=== PATIENT | male | born 1935 | race African-American/Black ===

== ENCOUNTER 2019-07-27 12:00 | Inpatient (IN) | payer MEDICARE, OTHER ==
[~2019-07-27] VITALS: Ht 172.7 cm; Wt 90.7 kg
[2019-07-27] VITALS (26 sets, daily range): BP systolic 51–169; BP diastolic 30–90
--- NOTE | 2019-07-27 12:08 | NUR ---
ED Nurse Note: Pt brought by ambulance to ED w/ hypotension. BP at SNF 70/40, ambulance BP 93/43. Current BP 169/82. Pt is nonverbal, eyes open, but non-tracing. Pt reactive to light pain. Pt has ventilator, came in with bagging. Pt now [facility], RT is present. MD at bedside. Pt has g tube, F/C. Pt is set up on monitor.
[2019-07-27] MEDS ORDERED: ASCORBIC ACID500 MG GT (12:20)
[2019-07-27] MEDS ORDERED: LACTULOSE20 GM/301 ORAL (12:20)
[2019-07-27] MEDS ORDERED: DUONEB 0.5-3(2.53 ML HHN (12:20)
[2019-07-27] MEDS ORDERED: ELIQUIS5 MG GT (12:20)
[2019-07-27] MEDS ORDERED: ACETAMINOP160 MG/5 M GT (12:20)
[2019-07-27] MEDS ORDERED: LATANOPROST 0.7.5 ML OP (12:20)
[2019-07-27] MEDS ORDERED: DORZOLAMIDE 2%10 ML OP (12:20)
[2019-07-27] MEDS ORDERED: FERROUS SULFAT325 MG GT (12:20)
[2019-07-27] MEDS ORDERED: HYDRALAZINE HCL10 MG ORAL (12:20)
[2019-07-27] MEDS ORDERED: CRANBERRY500 M4 PO (12:20)
[2019-07-27] MEDS ORDERED: PROSCAR5 MG GT (12:20)
[2019-07-27] MEDS ORDERED: POLYETHYLENE GL17 GM ORAL (12:20)
[2019-07-27] MEDS ORDERED: FLOMAX0.4 MG GT (12:22)
[2019-07-27] MEDS ORDERED: SENNA8.6 M2 GT (12:22)
[2019-07-27] MEDS ORDERED: THEOPHYLLI GT (12:24)
--- NOTE | 2019-07-27 12:30 | NUR ---
HAND-OFF: Report given to Fatou ROWAN.
[2019-07-27 12:59] LABS: HEMATOCRIT 24.7 % (42.0-52.0); HEMOGLOBIN 7.7 G/DL (14.2-18.0); MEAN CORPUSCULAR VOLUME 88 FL (80-99); PLATELET COUNT 161 K/UL (150-450); RED BLOOD COUNT 2.81 M/UL (4.70-6.10); RED CELL DISTRIBUTION WIDTH 21.4 % (11.6-14.8)
--- NOTE | 2019-07-27 13:04 | Diagnostic Imaging Report ---
Indication: Dyspnea Comparison: None A single view chest radiograph was obtained. Findings: Pulmonary edema demonstrated with evidence of a left pleural effusion. Heart may be mildly enlarged. Tracheostomy noted. Bones are unremarkable. IMPRESSION: Moderate pulmonary edema. Left pleural effusion
[2019-07-27] MEDS ORDERED: Piperacillin/Tazobactam 3.375 GM in NS 110 ML IVPB ONE (13:15)
[2019-07-27] MEDS ORDERED: Azithromycin 500 MG in NS 275 ML IV ONE (13:15)
[2019-07-27 13:20] LABS: ANION GAP 15 mmol/L (5-15); BLOOD UREA NITROGEN 36 mg/dL (7-18); CALCIUM 10.3 MG/DL (8.5-10.1); CARBON DIOXIDE 19 MMOL/L (21-32); CHLORIDE 110 MMOL/L (98-107); CREATININE 1.9 MG/DL (0.55-1.30); POTASSIUM 4.5 MMOL/L (3.5-5.1); SODIUM 143 MMOL/L (136-145)
[2019-07-27 13:28] LABS: INR 1.5 (0.9-1.1)
[2019-07-27 13:36] LABS: ALANINE AMINOTRANSFERASE 93 U/L (12-78); ALBUMIN 1.1 G/DL (3.4-5.0); ALBUMIN/GLOBULIN RATIO 0.3 (1.0-2.7); ALKALINE PHOSPHATASE 182 U/L (46-116); ASPARTATE AMINO TRANSFERASE 141 U/L (15-37); BILIRUBIN,TOTAL 0.2 MG/DL (0.2-1.0); CKMB 17.2 NG/ML (0.0-3.6); CREATINE KINASE 110 U/L (26-308)
--- NOTE | 2019-07-27 13:39 | NUR ---
ED Nurse Note:pt. has sacral and rectal skin errosion with wouns due to incontinence, picture was taken and downloaded
--- NOTE | 2019-07-27 13:40 | NUR ---
ED Nurse Note:urine swabs and sputum was sent to labs
[2019-07-27 13:45] LABS: APPEARANCE,URINE SLIGHTLY CLOUDY; BILIRUBIN, URINE NEGATIVE (NEGATIVE); COLOR,URINE PALE YELLOW; GLUCOSE, URINE (UA) NEGATIVE (NEGATIVE); KETONES,URINE NEGATIVE (NEGATIVE); LEUKOCYTE ESTERASE ,URINE 3+ (NEGATIVE); NITRITE,URINE NEGATIVE (NEGATIVE); PH,URINE 6.5 (4.5-8.0); PROTEIN,URINE 3+ (NEGATIVE); UROBILINOGEN,URINE NORMAL MG/DL (0.0-1.0)
[2019-07-27] MEDS ORDERED: LORazepam Inj 2mg/ml 1ml ONE (14:46)
--- NOTE | 2019-07-27 14:50 | NUR ---
ED Nurse Note:pt. had episode of seizures for 1 min, MD notified, placed on seizure precoution and given IV ativan, pt. became hypotensive
[2019-07-27] MEDS ORDERED: LORazepam Inj 2mg/ml 1ml IV ONE (15:00)
[2019-07-27] MEDS ORDERED: Levophed 4mg/4mL Inj IV ONE (15:45)
--- NOTE | 2019-07-27 15:50 | NUR ---
ED Nurse Note:started levophed infusion via central line
--- NOTE | 2019-07-27 16:07 | Emergency Room Report ---
History of Present Illness General Chief Complaint: Generalized Weakness Source: Medical Record Present Illness HPI 84-year-old male presents ED for evaluation. Brought in by EMS from [facility]. Reportedly more altered than usual today. Typically tracks but is nonresponsive. Trach/vent. No signs of distress on arrival. Unable to provide any additional history at this time. No reported fevers or chills. Was hypotensive. Initially responded to IV fluids. No other aggravating relieving factors. Denies any other associated symptoms Allergies: Coded Allergies: No Known Allergies (Unverified , 07/27/19) Patient History Past Medical History: HTN, dementia, other - brain mass Past Surgical History: other - trach/vent Social History: Denies: smoking, alcohol use, drug use Immunizations: UTD Reviewed Nursing Documentation: PMH: Agreed; PSxH: Agreed Nursing Documentation-PMH Past Medical History: No History, Except For Hx Hypertension: Yes - Pituitary gland disorder Hx Gastrointestinal Problems: Yes - dysphagia, G-tube Hx Neurological Problems: Yes - Dementia, encephalopathy Review of Systems All Other Systems: limited Physical Exam Vital Signs Date Time Temp Pulse Resp B/P (MAP) Pulse Ox O2 Delivery O2 Flow Rate FiO2 07/27/19 12:00 98.9 79 18 169/72 98 Mechanical Ventilator 07/27/19 12:00 98 Sp02 EP Interpretation: reviewed, normal General Appearance: alert, GCS 15, non-toxic, other - nonverbal Head: normocephalic Eyes: bilateral eye normal inspection, bilateral eye PERRL ENT: hearing grossly normal, normal pharynx, no angioedema, normal voice Neck: tracheotomy Respiratory: chest non-tender, crackles, speaking full sentences Cardiovascular #1: regular rate, rhythm, no edema Gastrointestinal: normal inspection Rectal: deferred Genitourinary: no CVA tenderness Musculoskeletal: other - contracted extremities Neurologic: other - nonverbal Psychiatric: other - nonverbal Skin: other - see nursing skin notes Lymphatic: normal inspection Procedures Critical Care Time Critical Care Time i. I feel this is a highly complex case requiring extensive working including EKG/Rhythm strip, Xray/CT/US, Blood/urine lab work, repeat exams while in ED, and administration of strong opiates/narcotics for pain control, admission to hospital or close patient follow up. Total time: 90 min bedside evaluation and treatment excludes procedures (EKG). Reason for critical care: hypotension, AMS, NSTEMI, pneumonia, severe sepsis, UTI Possible complications: hypotension, hypertension, FL, shock, arrhythmias, metabolic acidosis, end organ damage, respiratory failure. Interventions: labs, IVFS, EKG, CXR, 30cc/kg fluid bolus. broad spectrum abx. central line. ct pending Course: Brought in with increased altered mental status. Hypotensive. Trach/ vent. Lactic greater than 5. Troponin elevated. Has UTI. Chest x-ray shows pneumonia. Patient had seizure in ED. Given Ativan. Patient's chart shows history of brain mass. CT pending. Patient became hypotensive despite fluids. Given broad-spectrum antibiotics. Right IJ line placed. Pressors started. Consultations: nursing staff, EMS, family Performed by: Dr Vidal Tolerated well condition = critical j. because of unstable vital signs this patient had a condition that could potentially threaten life or limb. I feel this is a critical patient who required my full attention while patient was considered critical. Total Critical Care Time excluding procedures was greater than 90 minutes Central Line Central Line : Consent: Emergent Central Line Lumen: triple Maximal Sterile Barrier Tech: yes cap, yes mask, yes sterile gown, yes sterile gloves, yes large sterile sheet, yes hand hygiene, yes chlorhexidine prep Central Line Postion: internal jugular (R) Anesthesia: local Complications: none Central Line Post Position: sutured, good blood return, position confirmed w / CXR Attempts: One Patient Tolerated: Well Complications: None Medical Decision Making Diagnostic Impression: Primary Impression: Severe sepsis Additional Impressions: Septic shock Pneumonia Qualified Codes: J18.9 - Pneumonia, unspecified organism UTI (urinary tract infection) Qualified Codes: N39.0 - Urinary tract infection, site not specified Chronic respiratory failure Qualified Codes: J96.10 - Chronic respiratory failure, unspecified whether with hypoxia or hypercapnia Renal insufficiency Seizure ER Course Hospital Course 84-year-old male presents ED with altered mental status. Hypotension Differential diagnoses include: Pneumonia, UTI, sepsis, dehydration, FL/ unstable angina Clinical course Patient placed on stretcher. On radiation monitor with stable vitals ED course. After initial history and physical, I ordered labs, IV fluids, EKG, chest x- ray, blood cultures, UA. Labs - BUN/Cr elevated, no leukocytosis, Hb 7.7, troponins 0.9, lactic > 5, UA grossly positive for UTI EKG - NSR, no acute ischemic changes interpreted by me CXR - bilateral infiltrates Broad spectrum Abx given. Given 30 cc per KG fluid bolus. Patient remains hypotensive. Patient had seizure episode. Ativan given. Pending CT Right IJ central line placed. Confirmed on chest x-ray. Pressor started. Case discussed with Dr Witt and they agreed to admit patient to their service for further care and support I feel this is a highly complex case requiring extensive working including EKG/ Rhythm strip, Xray/CT/US, Blood/urine lab work, repeat exams while in ED, and administration of strong opiates/narcotics for pain control, admission to hospital or close patient follow up. Diagnosis -septic shock, pneumonia, UTI, chronic respiratory failure, renal insufficiency, seizure Patient admitted to ICU in critical condition Labs Test 07/27/19 12:30 07/27/19 12:35 Urine Color Pale yellow Urine Appearance Slightly cloudy Urine pH 6.5 (4.5-8.0) Urine Specific [place] 1.005 (1.005-1.035) Urine Protein 3+ (NEGATIVE) Urine Glucose (UA) Negative (NEGATIVE) Urine Ketones Negative (NEGATIVE) Urine Blood 5+ (NEGATIVE) Urine Nitrite Negative (NEGATIVE) Urine Bilirubin Negative (NEGATIVE) Urine Urobilinogen Normal MG/DL (0.0-1.0) Urine Leukocyte Esterase 3+ (NEGATIVE) Urine RBC 15-20 /HPF (0 - 0) Urine WBC 30-40 /HPF (0 - 0) Urine Squamous Epithelial Cells Few /LPF (NONE/OCC) Urine Bacteria Few /HPF (NONE) White Blood Count 10.0 K/UL (4.8-10.8) Red Blood Count 2.81 M/UL (4.70-6.10) Hemoglobin 7.7 G/DL (14.2-18.0) Hematocrit 24.7 % (42.0-52.0) Mean Corpuscular Volume 88 FL (80-99) Mean Corpuscular Hemoglobin 27.5 PG (27.0-31.0) Mean Corpuscular Hemoglobin Concent 31.3 G/DL (32.0-36.0) Red Cell Distribution Width 21.4 % (11.6-14.8) Platelet Count 161 K/UL (150-450) Mean Platelet Volume 7.9 FL (6.5-10.1) Neutrophils (%) (Auto) % (45.0-75.0) Lymphocytes (%) (Auto) % (20.0-45.0) Monocytes (%) (Auto) % (1.0-10.0) Eosinophils (%) (Auto) % (0.0-3.0) Basophils (%) (Auto) % (0.0-2.0) Differential Total Cells Counted 100 Neutrophils % (Manual) 58 % (45-75) Lymphocytes % (Manual) 18 % (20-45) Monocytes % (Manual) 7 % (1-10) Eosinophils % (Manual) 1 % (0-3) Basophils % (Manual) 0 % (0-2) Band Neutrophils 16 % (0-8) Nucleated Red Blood Cells 23 /100 WBC Platelet Estimate Adequate Platelet Morphology Normal Hypochromasia 1+ Anisocytosis 2+ Prothrombin Time 15.6 SEC (9.30-11.50) Prothromb Time International Ratio 1.5 (0.9-1.1) Activated Partial Thromboplast Time 59 SEC (23-33) Sodium Level 143 MMOL/L (136-145) Potassium Level 4.5 MMOL/L (3.5-5.1) Chloride Level 110 MMOL/L (98-107) Carbon Dioxide Level 19 MMOL/L (21-32) Anion Gap 15 mmol/L (5-15) Blood Urea Nitrogen 36 mg/dL (7-18) Creatinine 1.9 MG/DL (0.55-1.30) Estimat Glomerular Filtration Rate 41.0 mL/min (>60) Glucose Level 119 MG/DL (74-106) Lactic Acid Level 5.80 mmol/L (0.4-2.0) Calcium Level 10.3 MG/DL (8.5-10.1) Total Bilirubin 0.2 MG/DL (0.2-1.0) Aspartate Amino Transf (AST/SGOT) 141 U/L (15-37) Alanine Aminotransferase (ALT/SGPT) 93 U/L (12-78) Alkaline Phosphatase 182 U/L (46-116) Total Creatine Kinase 110 U/L (26-308) Creatine Kinase MB 17.2 NG/ML (0.0-3.6) Creatine Kinase MB Relative Index 15.6 Troponin I 0.963 ng/mL (0.000-0.056) Pro-B-Type Natriuretic Peptide 732 pg/mL (0-125) Total Protein 5.4 G/DL (6.4-8.2) Albumin 1.1 G/DL (3.4-5.0) Globulin 4.3 g/dL Albumin/Globulin Ratio 0.3 (1.0-2.7) EKG Diagnostic Results Rate: normal Rhythm: NSR ST Segments: no acute changes ASA given to the pt in ED: No Rhythm Strip Diag. Results EP Interpretation: yes Rhythm: NSR, no PVC's, no ectopy Chest X-Ray Diagnostic Results Chest X-Ray Diagnostic Results : Chest X-Ray Ordered: Yes # of Views/Limited/Complete: 1 View Indication: Shortness of Breath EP Interpretation: Yes Interpretation: no pneumothorax, other - bilateral infiltrates. R IJ line Impression: Other - bilateral pneumonia. s/p central line Electronically Signed by: Electronically signed by Bill Vidal MD CT/MRI/US Diagnostic Results CT/MRI/US Diagnostic Results : Imaging Test Ordered: CT Head Impression pending Last Vital Signs Date Time Temp Pulse Resp B/P (MAP) Pulse Ox O2 Delivery O2 Flow Rate FiO2 07/27/19 15:48 52 26 100 07/27/19 14:59 73/44 100 Mechanical Ventilator 07/27/19 13:55 98.9 Status: improved Disposition: ADMITTED INPATIENT Condition: Critical Referrals: NON PHYSICIAN (PCP) Bill Vidal MD Jul 27, 2019 16:07
--- NOTE | 2019-07-27 16:20 | Diagnostic Imaging Report ---
Indication: Dyspnea Comparison: 07/27/2019 A single view chest radiograph was obtained. Findings: Interstitial and airspace opacities again demonstrated laterally. There is a hazy opacity at the left lung base consistent with a pleural effusion. Right jugular line has been passed and the tip projects over the SVC. Tracheostomy noted. Heart size is stable. IMPRESSION: Right central line in good position. No pneumothorax Pulmonary edema. Left pleural effusion.
--- NOTE | 2019-07-27 16:53 | NUR ---
ED Nurse Note:continue to increase levophed drip to bring BP to theraputic level
--- NOTE | 2019-07-27 17:44 | NUR ---
ED Nurse Note:pt. had CT head done, levophed runs at 30mcg/min, continue monitor BP
--- NOTE | 2019-07-27 17:45 | Diagnostic Imaging Report ---
EXAM: CT Head Without Intravenous Contrast CLINICAL HISTORY: AMS TECHNIQUE: Axial computed tomography images of the head/brain without intravenous contrast. CTDI is 53 mGy and DLP is 1121 mGy-cm. One or more of the following dose reduction techniques were used: automated exposure control, adjustment of the mA and/or kV according to patient size, use of iterative reconstruction technique. COMPARISON: No relevant prior studies available. FINDINGS: Brain: No acute intracranial hemorrhage. Bifrontal and left parietal/occipital chronic encephalomalacia. Chronic small vessel ischemic changes. Cannot exclude [id number] ischemia on CT. Followup as clinically indicated. Ventricles: Unremarkable. Bones/joints: Left craniotomy. No acute fracture. Soft tissues: Unremarkable. Sinuses: Paranasal sinus mucosal thickening and opacities. Mastoid air cells: Opacities in bilateral mastoid air cells. Sella: Nonspecific sellar 2.5 x 1.5 cm prominence. Followup as clinically indicated. IMPRESSION: 1. No acute intracranial hemorrhage. Bifrontal and left parietal/occipital chronic encephalomalacia. Chronic small vessel ischemic changes. Cannot exclude [id number] ischemia on CT. Followup as clinically indicated. 2. Nonspecific sellar 2.5 x 1.5 cm prominence. Followup as clinically indicated. 3. Paranasal sinus mucosal thickening and opacities. 4. Opacities in bilateral mastoid air cells.
--- NOTE | 2019-07-27 18:10 | NUR ---
ED Nurse Note:called report to ICU, given to Mushtaq RN, pt. was taken to the unit
--- NOTE | 2019-07-27 18:20 | NUR ---
NURSE NOTES: Received patient from Fatou ROWAN. Patient is obtunded. Sinus Bradycardia on the Heart Monitor, HR 56. Currently on Levophed drip through Right IJ TLC at 30mcg/min. Receiving oxygen via trach to vent: Shiley 7.5 AC 14, TV 500, FiO2 100%, PEEP 5. Bed is locked, placed in lowest position, side rails up x3, bed alarm on, monitor placed, head of bed elevated.
--- NOTE | 2019-07-27 18:47 | History & Physical ---
History and Physical History & Physicial Rufus Witt MD Jul 27, 2019 18:47
[2019-07-27] MEDS ORDERED: DOPamine 400mg/250ml 250 ML IV SCH (18:48)
[2019-07-27] MEDS: Norepinephrine Bitartrate 16 MG in D5W 500ml 484 ML IV SCH (18:59)
[2019-07-27] MEDS ORDERED: Heparin 5000 units/ml inj IV ONE (19:00)
--- NOTE | 2019-07-27 19:03 | NUR ---
NURSE NOTES: Oral Temp 86.8 Degrees Fahrenheit. Bare hugger placed on patient. Will continue to monitor.
[2019-07-27] MEDS ORDERED: Albuterol/Ipratropium 3ml neb HHN PRN (19:15)
[2019-07-27] MEDS ORDERED: Heparin 25,000u/D5W 500ml 500 ML IV SCH (19:16)
[2019-07-27] MEDS: DOPamine 400mg/250ml 250 ML IV SCH ×2 (19:28→23:09)
--- NOTE | 2019-07-27 19:30 | NUR ---
NURSE NOTES: Patient's weight updated in the system. Heparin drip started at 18 units/kg/hr. Timed PTT draw ordered at 0130H. Dopamine started at 20mcg/kg/min
--- NOTE | 2019-07-27 19:33 | NUR ---
HAND-OFF: Report given to Grace ROWAN.
--- NOTE | 2019-07-27 19:34 | NUR ---
NURSE NOTES: Endorsement received from HARPAL Leone. Patient does not open eyes, no response to pain. Trache to vent, Shiley 7.5. AC 14, 500, PEEP 5, 100%. Right IJ TLC, receiving dopamine at 20mcg/kg/min. Right hand g18 heplock. GT patent and intact. Najera catheter F16 connected to urine bag. No urine output in the bag. Head of bed elevated. Bed locked and in low position. Bed alarm on. Call light within reach. Addendum: 07/27/19 at 2223 by GASPER WASBHURN RN NURSE NOTES: correction: received patient on Levophed double concentration at 16 mcg/min
--- NOTE | 2019-07-27 19:47 | Infectious Diseases Prog Note ---
Assessment/Plan Assessment/Plan Full consult dictated: A) 1) sepsis, shock, uti 2) pmh noted 3) allergies - nkda P) 1) zosyn, vancomycin, doxycycline 2) check cultures, labs and chest x-ray 3) thank you Subjective Allergies: Coded Allergies: No Known Allergies (Unverified , 07/27/19) Objective Vital Signs Last 24 Hour Vital Signs Date Time Temp Pulse Resp B/P (MAP) Pulse Ox O2 Delivery O2 Flow Rate FiO2 07/27/19 19:28 82/33 07/27/19 18:59 63/30 07/27/19 18:38 52 14 100 07/27/19 18:10 98.9 50 24 83/35 100 Mechanical Ventilator 100 07/27/19 17:43 50 24 83/35 100 Mechanical Ventilator 07/27/19 17:35 83/35 07/27/19 17:06 75/50 07/27/19 16:53 48 19 100 07/27/19 16:50 68/46 07/27/19 16:30 62/45 07/27/19 16:20 50 27 57/43 100 Mechanical Ventilator 07/27/19 16:18 57/43 07/27/19 16:07 61/42 07/27/19 16:00 49 25 51/42 100 Mechanical Ventilator 07/27/19 15:57 54/34 07/27/19 15:48 52 26 100 07/27/19 14:59 62 25 73/44 100 Mechanical Ventilator 07/27/19 13:55 98.9 54 25 120/90 100 Mechanical Ventilator 07/27/19 12:29 58 27 100 07/27/19 12:05 97.3 54 14 93/70 (78) 99 Room Air 07/27/19 12:00 87 23 Mechanical Ventilator 98 07/27/19 12:00 98.9 79 18 169/72 98 Mechanical Ventilator Height (Feet): 5 Height (Inches): 8.00 Weight (Pounds): 193 Microbiology Date/Time Source Procedure Growth Status 07/27/19 13:00 Rectum Received Laboratory Tests Test 07/27/19 12:30 07/27/19 12:35 07/27/19 15:55 Urine Color Pale yellow Urine Appearance Slightly cloudy Urine pH 6.5 (4.5-8.0) Urine Specific [place] 1.005 (1.005-1.035) Urine Protein 3+ (NEGATIVE) H Urine Glucose (UA) Negative (NEGATIVE) Urine Ketones Negative (NEGATIVE) Urine Blood 5+ (NEGATIVE) H Urine Nitrite Negative (NEGATIVE) Urine Bilirubin Negative (NEGATIVE) Urine Urobilinogen Normal MG/DL (0.0-1.0) Urine Leukocyte Esterase 3+ (NEGATIVE) H Urine RBC 15-20 /HPF (0 - 0) H Urine WBC 30-40 /HPF (0 - 0) H Urine Squamous Epithelial Cells Few /LPF (NONE/OCC) Urine Bacteria Few /HPF (NONE) White Blood Count 10.0 K/UL (4.8-10.8) Red Blood Count 2.81 M/UL (4.70-6.10) L Hemoglobin 7.7 G/DL (14.2-18.0) L Hematocrit 24.7 % (42.0-52.0) L Mean Corpuscular Volume 88 FL (80-99) Mean Corpuscular Hemoglobin 27.5 PG (27.0-31.0) Mean Corpuscular Hemoglobin Concent 31.3 G/DL (32.0-36.0) L Red Cell Distribution Width 21.4 % (11.6-14.8) H Platelet Count 161 K/UL (150-450) Mean Platelet Volume 7.9 FL (6.5-10.1) Neutrophils (%) (Auto) % (45.0-75.0) Lymphocytes (%) (Auto) % (20.0-45.0) Monocytes (%) (Auto) % (1.0-10.0) Eosinophils (%) (Auto) % (0.0-3.0) Basophils (%) (Auto) % (0.0-2.0) Differential Total Cells Counted 100 Neutrophils % (Manual) 58 % (45-75) Lymphocytes % (Manual) 18 % (20-45) L Monocytes % (Manual) 7 % (1-10) Eosinophils % (Manual) 1 % (0-3) Basophils % (Manual) 0 % (0-2) Band Neutrophils 16 % (0-8) H Nucleated Red Blood Cells 23 /100 WBC Platelet Estimate Adequate Platelet Morphology Normal Hypochromasia 1+ Anisocytosis 2+ Prothrombin Time 15.6 SEC (9.30-11.50) H Prothromb Time International Ratio 1.5 (0.9-1.1) H Activated Partial Thromboplast Time 59 SEC (23-33) H Sodium Level 143 MMOL/L (136-145) Potassium Level 4.5 MMOL/L (3.5-5.1) Chloride Level 110 MMOL/L (98-107) H Carbon Dioxide Level 19 MMOL/L (21-32) L Anion Gap 15 mmol/L (5-15) Blood Urea Nitrogen 36 mg/dL (7-18) H Creatinine 1.9 MG/DL (0.55-1.30) H Estimat Glomerular Filtration Rate 41.0 mL/min (>60) Glucose Level 119 MG/DL (74-106) H Lactic Acid Level 5.80 mmol/L (0.4-2.0) H 6.60 mmol/L (0.66-2.22) H Calcium Level 10.3 MG/DL (8.5-10.1) H Total Bilirubin 0.2 MG/DL (0.2-1.0) Aspartate Amino Transf (AST/SGOT) 141 U/L (15-37) H Alanine Aminotransferase (ALT/SGPT) 93 U/L (12-78) H Alkaline Phosphatase 182 U/L (46-116) H Total Creatine Kinase 110 U/L (26-308) Creatine Kinase MB 17.2 NG/ML (0.0-3.6) H Creatine Kinase MB Relative Index 15.6 Troponin I 0.963 ng/mL (0.000-0.056) Pro-B-Type Natriuretic Peptide 732 pg/mL (0-125) H Total Protein 5.4 G/DL (6.4-8.2) L Albumin 1.1 G/DL (3.4-5.0) L Globulin 4.3 g/dL Albumin/Globulin Ratio 0.3 (1.0-2.7) L Current Medications Medications (Trade) Dose Ordered Sig/Vicky Route PRN Reason Start Time Stop Time Status Last Admin Dose Admin Albuterol/ Ipratropium (Albuterol/ Ipratropium) 3 ml Q4H PRN HHN Shortness of Breath 07/27/19 19:15 08/01/19 19:14 Albuterol/ Ipratropium (Albuterol/ Ipratropium) 3 ml Q8HRT HHN 07/27/19 23:00 08/01/19 22:59 Dopamine HCl/ Dextrose 250 ml @ 0 mls/hr Q24H IV 07/27/19 19:17 08/26/19 19:16 07/27/19 19:28 Doxycycline Monohydrate (Doxycycline Monohydrate) 100 mg EVERY 12 HOURS GT 07/27/19 21:00 08/03/19 20:59 Heparin Sodium/ Dextrose 500 ml @ 31.5 mls/hr ADJUST PER PROTOCOL IV 07/27/19 19:16 08/26/19 19:15 07/27/19 19:24 Hydrocortisone (Solu-CORTEF) 100 mg EVERY 8 HOURS IV 07/27/19 22:00 08/26/19 21:59 Lansoprazole (Prevacid) 30 mg DAILY GT 07/27/19 09:00 08/26/19 08:59 Norepinephrine Bitartrate 16 mg/ Dextrose 500 ml @ 0 mls/hr Q24H IV 07/27/19 18:45 08/26/19 18:41 07/27/19 18:59 Piperacillin Sod/ Tazobactam Sod 3.375 gm/Sodium Chloride 110 ml @ 27.5 mls/hr EVERY 8 HOURS IVPB 07/27/19 22:00 08/01/19 21:59 Vancomycin HCl (Vanco rx to dose) 1 ea DAILY PRN MISC Per rx protocol 07/27/19 18:45 08/26/19 18:44 Vancomycin/Sodium Chloride 275 ml @ 137.5 mls/ hr ONCE IVPB 07/27/19 21:00 07/27/19 23:00 Nabila Rodriguez MD Jul 27, 2019 19:47
--- NOTE | 2019-07-27 20:00 | NUR ---
NURSE NOTES: Patient still hypothermic, kept on warming blanket.
[2019-07-27] MEDS ORDERED: LORazepam Inj 2mg/ml 1ml IV PRN (20:30)
[2019-07-27] MEDS: Dyna-Hex 2% Top Sol 2oz TOPIC SCH (20:33)
[2019-07-27] MEDS: Doxycycline Monohydrate 100mg GT SCH (20:34)
[2019-07-27] MEDS ORDERED: Vancomycin 1.5gm/NS Premix q24h IVPB SCH (21:00)
--- NOTE | 2019-07-27 22:30 | History and Physical Report ---
DATE OF ADMISSION: 07/27/2019 CHIEF COMPLAINT: Generalized weakness. HISTORY OF PRESENT ILLNESS: This is an 84 years old gentleman with past medical history significant for hypertension, dementia, brain mass, history of tracheostomy and PEG placement, DVT and PE, hypertension, BPH, chronic kidney disease, who presented to the hospital from nursing facility, [facility] after he was noted to have altered mental status and weakness. History is very limited secondary to the patient's status. History is mostly taken from the ER chart as well as senior care documentation. The patient shortly after initial evaluation in the emergency room was noted to be severely hypotensive. No fever or chills was reported at the senior care. The patient initially received IV fluid and was noted to be then started on Levophed pressor and subsequently the patient was admitted to ICU with septic shock as well as acute kidney injury and chronic renal insufficiency. PAST MEDICAL HISTORY AND PAST SURGICAL HISTORY: Significant for hypertension, dementia, brain mass, history of tracheostomy, vent dependent, status post PEG placement, DVT and PE, high hypertension, BPH, chronic kidney disease, dementia. MEDICATIONS: At the senior care, please refer to medication reconciliation. ALLERGIES: No known drug allergies. SOCIAL HISTORY: residential resident. No smoking, alcohol, or drugs. FAMILY HISTORY: Noncontributory. REVIEW OF SYSTEMS: Limited. No fever or chills was reported. PHYSICAL EXAMINATION: VITAL SIGNS: From emergency department, temperature 98.9, pulse of 79, respirations 18, and blood pressure initially was 169/72, then repeat one was noted to be 75/50 and 68/46. GENERAL: The patient is not responsive, cannot follow commands. Unable to open his eyes. HEENT: Head and neck examination, pupils equal and reactive to the light. Oral cavity has a full dentition with dry mouth and buccal cavity. NECK: Supple. Tracheostomy site is intact. No sign of drainage. HEART: S1, S2. Distant heart sounds. No murmur or gallop. LUNGS: Bilateral air entry and mechanical breath sounds. No wheeze. Occasional rhonchi. ABDOMEN: Soft, nondistended, nontender. PEG site is clean. PELVIC: Has a Najera catheter as well as a scar on the right hip area from previous surgery was noted, hip replacement. EXTREMITIES: +2 edema bilateral lower extremities. NEUROLOGIC: Neurologic examination is limited secondary to the patient's status. Presently, the patient is unresponsive, cannot follow commands. BACK: The patient has a stage DTI on the bilateral perianal area with mild bleeding, presented on admission. LABORATORY AND DIAGNOSTIC DATA: Laboratory on admission from the ER, WBC of 10, hemoglobin 7.7, hematocrit 24, platelet is 161. Sodium 143, potassium 4.5, chloride 101, bicarb 19, BUN 36, creatinine 1.9, GFR is 41, glucose is 119, and lactic acid is 5.8, repeat was 6.6, calcium is 10.3. Total bilirubin of 0.2, AST of 141, ALT of 93, alkaline phosphatase was 182. Troponin 0.963. ProBNP of 732. Total protein is 5.4, albumin is 1.1. PTT of 50, INR 1.5, and PTT of 59. Urine is +3 protein, +1 blood, +3 leukocytes, and 15 to 20 rbc's, 30 to 40 wbc. The patient had a chest x-ray, moderate pulmonary edema with left pleural effusion. CT of the head noted no acute intracranial hemorrhage, no skull fracture, chronic ischemic postoperative changes cannot exclude acute on chronic ischemic CT scan, paranasal sinus mucosal thickening and opacity. Repeat chest x-ray again, right central line in good position, no pneumothorax, pulmonary edema, left pleural effusion. EKG, sinus bradycardia with a ventricular rate of 59, no ST elevation, low-voltage EKG. ASSESSMENT: 1. Septic shock. 2. Acute kidney injury, chronic renal insufficiency. 3. History of DVT and PE. 4. Acute respiratory failure, on chronic vent dependent. 5. Status post PEG placement. 6. BPH. 7. History of hypertension, presently hypotensive. 8. Sacral decubitus ulcer, presented on admission. 9. Severe protein-calorie malnutrition. 10. Toxic metabolic encephalopathy. 11. Brain mass. PLAN: Admit the patient to ICU. Follow up with cultures. Broad-spectrum antibiotics with vancomycin and Zosyn and doxycycline. We will follow up with the laboratory in the morning. Code status at this time is Full Code. DVT prophylaxis, heparin drip. We will follow up with a duplex of lower extremity and follow up with Infectious Disease consultation, Dr. Nabila Rodriguez, Dr. Shantell Sosa, Pulmonary, Critical Care; Dr. Herrera from Wound management, Wound Care, and Dr. Jim Nance from Cardiology. Rufus Witt M.D. DR: DUANE JOB#: [id number] CC:
[2019-07-27] MEDS: Hydrocortisone 100mg Inj IV SCH (22:34)
[2019-07-27] MEDS: Zoysn 3.37gm in NS 100ML IVPB SCH (22:34)
--- NOTE | 2019-07-27 22:35 | Cardiology Progress Note ---
Assessment/Plan Assessment/Plan The patient is seen and examined, full consult note is dictated. Objective Last 24 Hour Vital Signs Date Time Temp Pulse Resp B/P (MAP) Pulse Ox O2 Delivery O2 Flow Rate FiO2 07/27/19 21:45 73 17 111/40 98 Mechanical Ventilator 07/27/19 21:30 73 15 108/36 97 Mechanical Ventilator 07/27/19 21:15 72 15 108/36 100 Mechanical Ventilator 07/27/19 21:00 72 14 105/36 100 Mechanical Ventilator 07/27/19 20:50 72 14 100 07/27/19 20:45 72 14 103/46 100 Mechanical Ventilator 07/27/19 20:30 73 14 88/45 100 Mechanical Ventilator 07/27/19 20:15 74 14 71/46 100 Mechanical Ventilator 07/27/19 20:00 75 07/27/19 20:00 74 14 79/32 100 Mechanical Ventilator 07/27/19 20:00 100 07/27/19 20:00 Mechanical Ventilator 07/27/19 19:45 77 14 75/32 100 Mechanical Ventilator 07/27/19 19:30 79 14 74/35 100 Mechanical Ventilator 07/27/19 19:28 82/33 07/27/19 19:15 66 16 82/33 100 Mechanical Ventilator 07/27/19 19:00 Mechanical Ventilator 07/27/19 19:00 86.8 48 15 74/35 100 Mechanical Ventilator 100 07/27/19 18:59 63/30 07/27/19 18:38 52 14 100 07/27/19 18:10 98.9 50 24 83/35 100 Mechanical Ventilator 100 07/27/19 17:43 50 24 83/35 100 Mechanical Ventilator 07/27/19 17:35 83/35 07/27/19 17:06 75/50 07/27/19 16:53 48 19 100 07/27/19 16:50 68/46 07/27/19 16:30 62/45 07/27/19 16:20 50 27 57/43 100 Mechanical Ventilator 07/27/19 16:18 57/43 07/27/19 16:07 61/42 07/27/19 16:00 49 25 51/42 100 Mechanical Ventilator 07/27/19 15:57 54/34 07/27/19 15:48 52 26 100 07/27/19 14:59 62 25 73/44 100 Mechanical Ventilator 07/27/19 13:55 98.9 54 25 120/90 100 Mechanical Ventilator 07/27/19 12:29 58 27 100 07/27/19 12:05 97.3 54 14 93/70 (78) 99 Room Air 07/27/19 12:00 87 23 Mechanical Ventilator 98 07/27/19 12:00 98.9 79 18 169/72 98 Mechanical Ventilator Laboratory Tests Test 07/27/19 12:30 07/27/19 12:35 07/27/19 15:55 Urine Color Pale yellow Urine Appearance Slightly cloudy Urine pH 6.5 (4.5-8.0) Urine Specific [place] 1.005 (1.005-1.035) Urine Protein 3+ (NEGATIVE) H Urine Glucose (UA) Negative (NEGATIVE) Urine Ketones Negative (NEGATIVE) Urine Blood 5+ (NEGATIVE) H Urine Nitrite Negative (NEGATIVE) Urine Bilirubin Negative (NEGATIVE) Urine Urobilinogen Normal MG/DL (0.0-1.0) Urine Leukocyte Esterase 3+ (NEGATIVE) H Urine RBC 15-20 /HPF (0 - 0) H Urine WBC 30-40 /HPF (0 - 0) H Urine Squamous Epithelial Cells Few /LPF (NONE/OCC) Urine Bacteria Few /HPF (NONE) White Blood Count 10.0 K/UL (4.8-10.8) Red Blood Count 2.81 M/UL (4.70-6.10) L Hemoglobin 7.7 G/DL (14.2-18.0) L Hematocrit 24.7 % (42.0-52.0) L Mean Corpuscular Volume 88 FL (80-99) Mean Corpuscular Hemoglobin 27.5 PG (27.0-31.0) Mean Corpuscular Hemoglobin Concent 31.3 G/DL (32.0-36.0) L Red Cell Distribution Width 21.4 % (11.6-14.8) H Platelet Count 161 K/UL (150-450) Mean Platelet Volume 7.9 FL (6.5-10.1) Neutrophils (%) (Auto) % (45.0-75.0) Lymphocytes (%) (Auto) % (20.0-45.0) Monocytes (%) (Auto) % (1.0-10.0) Eosinophils (%) (Auto) % (0.0-3.0) Basophils (%) (Auto) % (0.0-2.0) Differential Total Cells Counted 100 Neutrophils % (Manual) 58 % (45-75) Lymphocytes % (Manual) 18 % (20-45) L Monocytes % (Manual) 7 % (1-10) Eosinophils % (Manual) 1 % (0-3) Basophils % (Manual) 0 % (0-2) Band Neutrophils 16 % (0-8) H Nucleated Red Blood Cells 23 /100 WBC Platelet Estimate Adequate Platelet Morphology Normal Hypochromasia 1+ Anisocytosis 2+ Prothrombin Time 15.6 SEC (9.30-11.50) H Prothromb Time International Ratio 1.5 (0.9-1.1) H Activated Partial Thromboplast Time 59 SEC (23-33) H Sodium Level 143 MMOL/L (136-145) Potassium Level 4.5 MMOL/L (3.5-5.1) Chloride Level 110 MMOL/L (98-107) H Carbon Dioxide Level 19 MMOL/L (21-32) L Anion Gap 15 mmol/L (5-15) Blood Urea Nitrogen 36 mg/dL (7-18) H Creatinine 1.9 MG/DL (0.55-1.30) H Estimat Glomerular Filtration Rate 41.0 mL/min (>60) Glucose Level 119 MG/DL (74-106) H Lactic Acid Level 5.80 mmol/L (0.4-2.0) H 6.60 mmol/L (0.66-2.22) H Calcium Level 10.3 MG/DL (8.5-10.1) H Total Bilirubin 0.2 MG/DL (0.2-1.0) Aspartate Amino Transf (AST/SGOT) 141 U/L (15-37) H Alanine Aminotransferase (ALT/SGPT) 93 U/L (12-78) H Alkaline Phosphatase 182 U/L (46-116) H Total Creatine Kinase 110 U/L (26-308) Creatine Kinase MB 17.2 NG/ML (0.0-3.6) H Creatine Kinase MB Relative Index 15.6 Troponin I 0.963 ng/mL (0.000-0.056) Pro-B-Type Natriuretic Peptide 732 pg/mL (0-125) H Total Protein 5.4 G/DL (6.4-8.2) L Albumin 1.1 G/DL (3.4-5.0) L Globulin 4.3 g/dL Albumin/Globulin Ratio 0.3 (1.0-2.7) L Microbiology Date/Time Source Procedure Growth Status 07/27/19 13:00 Rectum Received Jim Nance MD Jul 27, 2019 22:35
--- NOTE | 2019-07-27 22:45 | NUR ---
NURSE NOTES: Called patient's son, telephone consent obtained as witnessed by another RN.
--- NOTE | 2019-07-27 23:21 | NUR ---
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 ID band checked. Patient still hypothermic at this time.
[2019-07-27] MEDS: Albuterol/Ipratropium 3ml neb HHN SCH (23:28)
[2019-07-28] VITALS (62 sets, daily range): BP systolic 75–128; BP diastolic 32–66
--- NOTE | 2019-07-28 00:30 | Consultation ---
DATE OF CONSULTATION: 07/27/2019 INFECTIOUS DISEASE CONSULTATION CONSULTING PHYSICIAN: Nabila Rodriguez M.D. ATTENDING PHYSICIAN: Rufus Witt M.D. REFERRING PHYSICIAN: Rufus Witt M.D REASON FOR CONSULTATION: Septic shock and UTI. CHIEF COMPLAINT: The patient's chief complaint coming in to the hospital is altered mental status and septic shock. HISTORY OF PRESENT ILLNESS: This is an 84-year-old male who currently is in the [facility] ICU with septic shock, on pressors. He is on heparin for DVT. Infectious disease consultation was requested. The patient has UTI. The patient is on Zosyn, vancomycin, and doxycycline. Cultures are pending. MAR was noted. Notes were reviewed. Case was discussed with RN. REVIEW OF SYSTEMS: CONSTITUTIONAL: The patient has trach, vent, respiratory failure, on pressors. No fevers. HEAD AND NECK: He has trach. CARDIAC: He is on pressors. GASTROINTESTINAL: No nausea or diarrhea. GENITOURINARY: He has a Najera. PULMONARY: On a vent. NEUROLOGIC: The patient is weak, not very responsive. No seizures. SKIN: Wounds were reviewed. No obvious rash. PAST MEDICAL HISTORY: The patient has a past medical history of the following. The patient has a past medical history of trach, vent, respiratory failure, dysphagia, G-tube, hypertension, dementia, brain mass, pituitary gland disorder, dysphagia, dementia, and encephalopathy. ALLERGIES: No known drug allergies. SOCIAL HISTORY: No mention of smoking, alcohol, or drug use. FAMILY HISTORY: Noncontributory. No mention of tuberculosis exposure or cancer. MEDICATIONS: Upon reviewing the MAR, he is on following medications, hydrocortisone, Solu-Cortef, doxycycline, Zosyn, vancomycin, albuterol, dopamine, heparin, norepinephrine. Vancomycin per pharmacy. Outside medications noted and reconciliated. PHYSICAL EXAMINATION: VITAL SIGNS: Temperature 98.9, pulse rate 52, respiratory rate 14, blood pressure 82/33, saturation 100%, and FiO2 100%. He is on pressors and heparin drip. HEAD AND NECK: He has trach. Normocephalic. No icterus. HEART: Regular, bradycardic. ABDOMEN: Soft. Positive bowel sounds. LUNGS: Bilateral rhonchi. Possible rales. He has crackles. SKIN: No rash. Wounds were noted. MUSCULOSKELETAL: No effusion. Legs are without cellulitis. PERIPHERAL VASCULAR: No cyanosis. GENITOURINARY: He has Najera. LINE SITES: Without phlebitis. NEUROLOGIC: Generalized weakness. Poorly responsive. LABORATORY DATA: UA had 3+ leukocyte esterase, 30 to 40 white blood cells. Cultures are pending. Creatinine 1.9. White count 10.0 and hemoglobin 7.7. LFTs noted. Imaging studies, chest x-ray with effusion and edema, right central line, left effusion, pulmonary edema. Cultures pending. ASSESSMENT AND PLAN: 1. The patient has septic shock, likely secondary to UTI, rule out cholecystitis, elevated liver enzymes, and alkaline phosphatase noted. Continue chest x-ray with pulmonary edema. Continue vancomycin, Zosyn, and doxycycline for MRSA gram-negative coverage. Again, vancomycin, Zosyn, and doxycycline for septic shock and UTI. Check followup labs, cultures, chest x-ray, and abdominal ultrasound. Monitor sepsis status. 2. Trach, vent, and respiratory failure. 3. Dysphagia, G-tube. 4. Skin care protocol. 5. Acute kidney, elevated creatinine. 6. Anemia. 7. Hypertension. 8. Dementia. 9. Blood pressure treatment per primary care team. 10. Brain mass. 11. Encephalopathy and dementia. 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 13. No known drug allergies. 14. Social history negative. 15. Family history negative. 16. MAR is noted. 17. Case was discussed with RN. 18. Orders were noted. Nabila Rodriguez M.D. DR: ELVIN JOB#: [id number] CC:
--- NOTE | 2019-07-28 01:30 | NUR ---
[facility] Downtime: On 07/28/2019 From 0130H to 0600H The following electronic documentation will be located in the patient handwritten chart: Nursing Documentation Medication Administration Records
[2019-07-28] MEDS ORDERED: Heparin 25,000u/D5W 500ml 500 ML IV SCH ×2 (06:00→14:45)
[2019-07-28] MEDS: Zoysn 3.37gm in NS 100ML IVPB SCH ×3 (06:10→21:23)
[2019-07-28] MEDS: Hydrocortisone 100mg Inj IV SCH ×3 (06:10→21:22)
--- NOTE | 2019-07-28 06:11 | Consultation ---
DATE OF CONSULTATION: 07/27/2019 CARDIOLOGY CONSULTATION CONSULTING PHYSICIAN: Jim Nance M.D. REFERRING PHYSICIAN: Rufus Witt M.D. REASON FOR CONSULTATION: Management of septic shock. HISTORY OF PRESENT ILLNESS: The patient is a very unfortunate 84-year-old gentleman who is [facility] in [facility] by EMS for altered level of consciousness and hypotension. The patient was reported to be more altered in the nursing facility. His baseline is nonresponsive and he has a history of chronic respiratory failure, status post tracheostomy tube placement. Given the fact that the patient is not capable of providing any history, this report is prepared from the patient's medical record and the record obtained by the emergency department physician. Initially, the patient received IV fluid in the emergency department, which helped his hypotension. Review of the record shows hypertension as the only risk factor for coronary artery disease. Initial blood pressure in the emergency department was 169/72 mmHg and heart rate was 79. A 12-lead electrocardiogram shows sinus rhythm with no acute ischemic changes. Chest x-ray in the emergency department showed bilateral infiltration, presence of right . The patient was admitted to the intensive care unit for septic shock. Cardiology consultation was made, requested by Dr. Witt. The patient is seen in the emergency department of [facility]. PAST MEDICAL HISTORY: Hypertension, dementia, brain mass, chronic respiratory failure, status post tracheostomy tube placement, history of dysphagia, status post PEG placement, and history of encephalopathy. ALLERGIES: No known drug allergies. PAST SURGICAL HISTORY: 1. Status post tracheostomy tube placement. 2. Status post PEG placement. SOCIAL HISTORY: He is a resident of a jail facility. There is no history of tobacco, alcohol, or illicit drug use. REVIEW OF SYSTEMS: A 12-system review cannot be obtained in view of the patient's nonverbal status. MEDICATIONS: List of medications in the nursing facility includes acetaminophen 650 G-tube every four hours for fever, headache, and mild pain. 5 mg G-tube twice daily, ascorbic acid 5 mg G-tube daily, cranberry 5 mg G-tube daily, dorzolamide eyedrops, ferrous sulfate 325 G-tube daily, Proscar 5 mg G-tube daily, hydralazine 12.5 mg G-tube q.6 h. for hypertension, DuoNeb 3 mL HHN every six hours, lactulose 30 mL every six hours, MiraLAX 17 g G-tube nightly p.r.n. constipation, senna 17.2 mg G-tube nightly p.r.n. constipation, Flomax 0.4 mg G-tube daily, and theophylline 80 mg G-tube five times a day. PHYSICAL EXAMINATION: VITAL SIGNS: Blood pressure at the time of arrival to the hospital was 57/43, heart rate of 50, and respirations 27 with saturation of 100%. HEENT: Atraumatic and normocephalic. Anicteric. Pupils are equal, round, and reactive to light and accommodation. Extraocular muscles intact. NECK: JVP less than 5 cm. ET tube in the mouth. No carotid bruit. Carotid upstrokes 2+ bilaterally. CVS: Normal S1, S2. Regular rate and rhythm. No murmurs, gallops, or rubs. PMI is at fourth intercostal space in the left midclavicular line. LUNGS: Clear to auscultation bilaterally. ABDOMEN: Soft, nontender, and nondistended. Positive G-tube. EXTREMITIES: No evidence of edema, clubbing, or cyanosis. LABORATORY AND DIAGNOSTIC DATA: WBC 10, hemoglobin 7.7, hematocrit 24.7, and platelet count 161. Chemistry shows sodium 143, potassium is 5.4, chloride 110, bicarb 19, BUN 36, creatinine 1.9, and glucose 119. Lactic acid was 5.8 and 6.6. AST 141, ALT 93. Troponin I was 0.963. ProBNP was 732. Calcium is 10.3. Troponin I is 0.96. Chest x-ray shows moderate pulmonary edema with left pleural effusion, marked enlarging cardiac silhouette. ASSESSMENT AND PLAN: The patient is a very unfortunate 64-year-old gentleman, seen in Cardiology consultation. 1. Septic shock. Continue with IV fluid, 2 L. Systolic blood pressure remains a little bit low at 90 mmHg. We will consider Kadeem-Synephrine at 5 mcg/kg/minute. Continue the IV antibiotic therapy. 2. Slight elevation of troponin I level with the demand ischemia with non-ST elevation myocardial infarction type 2 in the presence of sepsis and renal failure. We will obtain 2D echocardiography for assessment of LV systolic and diastolic function. 3. Ventilatory derived respiratory failure, status post tracheostomy tube placement. 4. Dysphagia, status post PEG placement. 5. Pituitary gland disorder. 6. Hypertension. 7. Dementia. 8. History of encephalopathy. I would like to thank Dr. Witt for the courtesy of this consultation. Jim Nance M.D. DR: OLMAN JOB#: [id number] CC:
[2019-07-28 06:36] LABS: HEMATOCRIT 28.9 % (42.0-52.0); HEMOGLOBIN 9.4 G/DL (14.2-18.0); MEAN CORPUSCULAR VOLUME 87 FL (80-99); PLATELET COUNT 176 K/UL (150-450); RED CELL DISTRIBUTION WIDTH 20.1 % (11.6-14.8)
--- NOTE | 2019-07-28 07:05 | NUR ---
HAND-OFF: Report given to HARPAL Leone.
--- NOTE | 2019-07-28 07:06 | NUR ---
NURSE NOTES: Received patient from Grace ROWAN. Patient is obtunded. Receiving oxygen via trach to vent: Shiley 7.5, AC 14, TV 500, FiO2 100%, PEEP 5. Patient is sinus tachycardia on the heart monitor, HR 107. G-tube is intact and clamped, currently NPO. IV site is Right IJ TLC receiving Levophed drip at 30mcg/min, Dopamine drip at 16mcg/kg/min, Heparin drip at 14units/kg/hr. Right hand 18g is intact and asymptomatic. Bed is locked, placed in lowest position, side rails up x3, bed alarm on, head of bed elevated. Will continue to monitor.
[2019-07-28 07:14] LABS: ALANINE AMINOTRANSFERASE 108 U/L (12-78); ALBUMIN 1.2 G/DL (3.4-5.0); ALBUMIN/GLOBULIN RATIO 0.3 (1.0-2.7); ALKALINE PHOSPHATASE 173 U/L (46-116); ANION GAP 12 mmol/L (5-15); ASPARTATE AMINO TRANSFERASE 202 U/L (15-37); BILIRUBIN,TOTAL 0.3 MG/DL (0.2-1.0); BLOOD UREA NITROGEN 39 mg/dL (7-18); CALCIUM 9.7 MG/DL (8.5-10.1); CARBON DIOXIDE 21 MMOL/L (21-32); CHLORIDE 109 MMOL/L (98-107); CREATININE 2.1 MG/DL (0.55-1.30); PHOSPHORUS 2.6 MG/DL (2.5-4.9); POTASSIUM 5.4 MMOL/L (3.5-5.1); SODIUM 141 MMOL/L (136-145)
--- NOTE | 2019-07-28 07:18 | Pulmonolgy Critical Care Note ---
Critical Care - Asmt/Plan Assessment/Plan: ASSESSMENT Severe sepsis probably due to PNA Septic shock Pneumonia, possibly aspiration ( given seizure in ED) UTI Acute on chronic ventilator dependent respiratory failure with tracheostomy status Elevated troponin Anemia ASIA vs CRI abnormal LFT, likely shock liver PLAN OF CARE ICU pressors- titrated to keep mean arterial blood pressure above 65 vent support,, trach care pulmonary toilet fup CXR stat ABG and call results, will titrate settings as needed ABX per ID, fup with CX venous duplex BLE and SCD if negative Echo with pEF serial troponin heparin drip -> ? dc due to red secretions from trach/ per cardio stress dose steroid, would advise to stop monitor H&H with goal to keep hemoglobin above 7, GI prophylaxis renal US with mild davion hydro, monitor renal parameters, lites ,correct lites as needed ,avoid nephrotoxic abd US noted, trend LFT, likely shock liver case discussed and evaluated by supervising physician Critical Care - Objective Last 24 Hour Vital Signs Date Time Temp Pulse Resp B/P (MAP) Pulse Ox O2 Delivery O2 Flow Rate FiO2 07/28/19 07:00 102 26 90/35 100 Mechanical Ventilator 100 07/28/19 06:45 101 26 86/39 100 Mechanical Ventilator 100 07/28/19 06:30 101 20 07/28/19 06:30 101 26 95/39 100 Mechanical Ventilator 100 07/28/19 06:15 101 24 94/34 100 Mechanical Ventilator 100 07/28/19 06:00 101 25 94/34 100 Mechanical Ventilator 100 07/28/19 06:00 94/34 07/28/19 06:00 94/34 07/28/19 05:45 100 25 88/34 100 Mechanical Ventilator 100 07/28/19 05:30 98 25 81/35 100 Mechanical Ventilator 100 07/28/19 05:15 97 24 86/33 100 Mechanical Ventilator 100 07/28/19 05:00 86/33 07/28/19 05:00 86/33 07/28/19 05:00 98 24 88/32 100 Mechanical Ventilator 100 07/28/19 04:45 96 25 89/34 100 Mechanical Ventilator 100 07/28/19 04:40 96 25 100 07/28/19 04:30 95 25 94/34 100 Mechanical Ventilator 100 07/28/19 04:15 96 24 90/44 100 Mechanical Ventilator 100 07/28/19 04:00 98.7 93 24 94/36 100 Mechanical Ventilator 100 07/28/19 04:00 90/44 07/28/19 04:00 90/44 07/28/19 04:00 100 07/28/19 04:00 92 07/28/19 04:00 Mechanical Ventilator 07/28/19 03:45 93 25 99/36 100 Mechanical Ventilator 100 07/28/19 03:30 92 23 101/32 100 Mechanical Ventilator 100 07/28/19 03:15 92 24 106/39 Mechanical Ventilator 100 07/28/19 03:00 91 24 102/33 100 Mechanical Ventilator 100 07/28/19 03:00 106/39 07/28/19 03:00 106/36 07/28/19 02:45 92 25 104/37 100 Mechanical Ventilator 100 07/28/19 02:35 92 28 100 07/28/19 02:30 94 28 99/49 100 Mechanical Ventilator 100 07/28/19 02:15 96 25 117/36 99 Mechanical Ventilator 100 07/28/19 02:00 95 26 128/39 100 Mechanical Ventilator 100 07/28/19 02:00 117/36 07/28/19 02:00 117/36 07/28/19 01:45 94 23 127/40 100 Mechanical Ventilator 100 07/28/19 01:30 92 23 127/42 100 Mechanical Ventilator 100 07/28/19 01:28 94 22 100 07/28/19 01:15 91 22 127/42 100 Mechanical Ventilator 100 07/28/19 01:00 127/42 07/28/19 01:00 127/42 07/28/19 01:00 88 20 120/42 100 Mechanical Ventilator 100 07/28/19 00:45 87 19 126/38 100 Mechanical Ventilator 100 07/28/19 00:30 85 19 122/42 100 Mechanical Ventilator 100 07/28/19 00:15 84 23 112/46 100 Mechanical Ventilator 100 07/28/19 00:00 Mechanical Ventilator 07/28/19 00:00 83 25 124/35 100 Mechanical Ventilator 100 07/28/19 00:00 100 07/28/19 00:00 112/46 07/28/19 00:00 112/42 07/28/19 00:00 79 07/27/19 23:45 91.0 84 15 119/34 100 Mechanical Ventilator 100 07/27/19 23:30 81 19 124/38 100 Mechanical Ventilator 100 07/27/19 23:28 81 22 100 Mechanical Ventilator 100 82 15 100 07/27/19 23:15 80 22 121/36 100 Mechanical Ventilator 100 07/27/19 23:09 124/34 07/27/19 23:00 79 23 124/34 100 Mechanical Ventilator 100 07/27/19 22:45 77 19 123/30 100 Mechanical Ventilator 100 07/27/19 22:30 75 19 118/35 100 Mechanical Ventilator 100 07/27/19 22:15 75 19 118/35 100 Mechanical Ventilator 100 07/27/19 22:00 74 17 113/37 100 Mechanical Ventilator 100 07/27/19 21:45 73 17 111/40 98 Mechanical Ventilator 07/27/19 21:30 73 15 108/36 97 Mechanical Ventilator 07/27/19 21:15 72 15 108/36 100 Mechanical Ventilator 07/27/19 21:00 72 14 105/36 100 Mechanical Ventilator 07/27/19 20:50 72 14 100 07/27/19 20:45 72 14 103/46 100 Mechanical Ventilator 07/27/19 20:30 73 14 88/45 100 Mechanical Ventilator 07/27/19 20:15 74 14 71/46 100 Mechanical Ventilator 07/27/19 20:00 75 07/27/19 20:00 74 14 79/32 100 Mechanical Ventilator 07/27/19 20:00 100 07/27/19 20:00 Mechanical Ventilator 07/27/19 19:45 77 14 75/32 100 Mechanical Ventilator 07/27/19 19:30 79 14 74/35 100 Mechanical Ventilator 07/27/19 19:28 82/33 07/27/19 19:15 66 16 82/33 100 Mechanical Ventilator 07/27/19 19:00 Mechanical Ventilator 07/27/19 19:00 86.8 48 15 74/35 100 Mechanical Ventilator 100 07/27/19 18:59 63/30 07/27/19 18:38 52 14 100 07/27/19 18:10 98.9 50 24 83/35 100 Mechanical Ventilator 100 07/27/19 17:43 50 24 83/35 100 Mechanical Ventilator 07/27/19 17:35 83/35 07/27/19 17:06 75/50 07/27/19 16:53 48 19 100 07/27/19 16:50 68/46 07/27/19 16:30 62/45 07/27/19 16:20 50 27 57/43 100 Mechanical Ventilator 07/27/19 16:18 57/43 07/27/19 16:07 61/42 07/27/19 16:00 49 25 51/42 100 Mechanical Ventilator 07/27/19 15:57 54/34 07/27/19 15:48 52 26 100 07/27/19 14:59 62 25 73/44 100 Mechanical Ventilator 07/27/19 13:55 98.9 54 25 120/90 100 Mechanical Ventilator 07/27/19 12:29 58 27 100 07/27/19 12:05 97.3 54 14 93/70 (78) 99 Room Air 07/27/19 12:00 87 23 Mechanical Ventilator 98 07/27/19 12:00 98.9 79 18 169/72 98 Mechanical Ventilator Status: other - intuabted on Vnet AC 500-14-90% PEEP5 Condition: critical HEENT: atraumatic, other - on vent Neck: trach - Shiley #7.5, small amount of thick secretions Lungs: rhonchi Heart: HR/BP unstable Abdomen: soft, feeding tube - G tube Extremities: no C/C/E Micro: Microbiology Date/Time Source Procedure Growth Status 07/27/19 13:00 Rectum Received Critical Care - Subjective ROS Limited/Unobtainable: Yes Intubation Day: intubated Interval Events: on vent with leukocytosis on 100% FiO2 tachycardic tachypneic on 2 diff pressors Condition: critical EKG Rhythm: Sinus Tachycardia FI02: 100 Vent Support Breath Rate: 14 Vent Support Mode: AC Vent Tidal Volume: 500 Sputum Amount: Small PEEP: 5.0 PIP: 20 Fluids: D5/12 NS at 75 Drips: Dopamine gtt 16 mcg.kg/min;m levophed gtt 30 mcg/min; heparin gtt I&O: Intake and Output 07/27/19 07/28/19 19:00 07:00 Intake Total 708.464 ml Output Total 60 ml Balance 648.464 ml Intake IV Total 708.464 ml Output Urine Total 60 ml # Voids 1 CXR: 07/27 Moderate pulmonary edema. Left pleural effusion 07/28 1. Pulmonary edema with small left pleural effusion, not significantly changed from the prior day's chest x-ray. 2. Subsegmental atelectasis versus infiltrate in the left lung base. Lori Evans NP Jul 28, 2019 07:18
[2019-07-28 07:26] LABS: WHITE BLOOD COUNT 25.4 K/UL (4.8-10.8)
[2019-07-28] MEDS: Albuterol/Ipratropium 3ml neb HHN SCH ×3 (08:01→22:55)
--- NOTE | 2019-07-28 08:02 | NUR ---
NURSE NOTES: Left message to Dr. Campbell regarding WBC lab results.
--- NOTE | 2019-07-28 08:06 | NUR ---
NURSE NOTES: Left message to Dr. Nance regarding Troponin levels.
--- NOTE | 2019-07-28 08:18 | NUR ---
NURSE NOTES: Received call back from Dr. Campbell, no new orders.
[2019-07-28] MEDS: Doxycycline Monohydrate 100mg GT SCH ×2 (09:17→20:38)
--- NOTE | 2019-07-28 09:24 | NUR ---
NURSE NOTES: Received call back from Dr. Nance, no new orders.
--- NOTE | 2019-07-28 09:27 | NUR ---
NURSE NOTES: Spoke to Dr. Witt regarding low urine output and potassium level. Will consult with Dr. Cruz.
[2019-07-28] MEDS: Norepinephrine Bitartrate 16 MG in D5W 500ml 484 ML IV SCH ×3 (09:36→21:23)
[2019-07-28] MEDS: DOPamine 400mg/250ml 250 ML IV SCH ×5 (09:38→21:44)
--- NOTE | 2019-07-28 10:44 | Consultation ---
Consult Note Consult Note I was asked to eval at the request of Dr Witt- Patient seen in ICU discussed with RN "Vasu". patient on pressors and on ventilator chronic trach- PEG ER: 84-year-old male presents ED for evaluation. Br[facility]. Reportedly more altered than usual today. Typically tracks but is nonresponsive. Trach/vent. No signs of distress on arrival. Unable to provide any additional history at this time. No reported fevers or chills. Was hypotensive. Initially responded to IV fluids. No other aggravating relieving factors. Denies any other associated symptoms No Known Allergies (Unverified , 07/27/19) Past Medical History: HTN, dementia, other - brain mass Past Surgical History: other - trach/vent Past Medical History: No History, Except For Hx Hypertension: Yes - Pituitary gland disorder Hx Gastrointestinal Problems: Yes - dysphagia, G-tube Hx Neurological Problems: Yes - Dementia, encephalopathy Assessment/Plan Acute renal failure- ? Underlying CKD Septic shock / Pneumonia Severe anemia- transfused 2 units PRBCs already acute on chronic respiratory failure- on Vent Elevated Troponin I History of DVT and PE. BPH Sacral decubitus ulcer, presented on admission. Brain mass ( pituitary) 2D echo ISIDRO kidney monitor renal parameters TFT Anemia bernstein fluid challenge per orders Lucas Cruz MD Jul 28, 2019 10:44
[2019-07-28] MEDS: D5 1/2NS w/KCL 10meq 1,000 ML IV SCH ×2 (11:48→21:22)
--- NOTE | 2019-07-28 12:35 | Infectious Diseases Prog Note ---
Assessment/Plan Assessment/Plan Full consult dictated: A) 1) sepsis, shock, uti, ? gram neg pna vs pulmonary edema 2) pmh noted 3) allergies - nkda P) 1) zosyn, vancomycin, doxycycline 2) check cultures, labs and chest x-ray 3) critical condition 4) skin care per protocol 5) d/w RN 6) continue per primary and consultants Subjective Constitutional: Reports: fatigue; Denies: fever HEENT: Reports: congestion Respiratory: Reports: shortness of breath Gastrointestinal/Abdominal: Denies: nausea, vomiting, diarrhea Genitourinary: Reports: other - + otero Allergies: Coded Allergies: No Known Allergies (Unverified , 07/27/19) Objective Vital Signs Last 24 Hour Vital Signs Date Time Temp Pulse Resp B/P (MAP) Pulse Ox O2 Delivery O2 Flow Rate FiO2 07/28/19 12:00 Mechanical Ventilator 07/28/19 12:00 98.9 107 25 100/38 100 Mechanical Ventilator 100 07/28/19 12:00 100 07/28/19 11:30 109 25 107/36 100 Mechanical Ventilator 100 07/28/19 11:00 97/32 07/28/19 11:00 97/32 07/28/19 11:00 97 25 97/32 100 Mechanical Ventilator 100 07/28/19 10:30 102 25 97/39 100 Mechanical Ventilator 100 07/28/19 10:15 94/34 07/28/19 10:00 104 24 94/34 100 Mechanical Ventilator 100 07/28/19 10:00 96/32 07/28/19 10:00 96/32 07/28/19 09:45 93 23 94/36 100 Mechanical Ventilator 100 07/28/19 09:38 95/37 07/28/19 09:36 95/37 07/28/19 09:30 94 22 95/37 100 Mechanical Ventilator 100 07/28/19 09:15 93 24 95/34 100 Mechanical Ventilator 100 07/28/19 09:00 97 23 93/36 100 Mechanical Ventilator 100 07/28/19 08:45 96 24 94/34 100 Mechanical Ventilator 100 07/28/19 08:01 101 29 100 Mechanical Ventilator 90 100 24 90 07/28/19 08:00 99.4 101 29 91/37 100 Mechanical Ventilator 100 07/28/19 08:00 100 07/28/19 08:00 Mechanical Ventilator 07/28/19 07:44 92 07/28/19 07:30 101 25 94/37 100 Mechanical Ventilator 100 07/28/19 07:00 92/33 07/28/19 07:00 92/33 07/28/19 07:00 102 26 90/35 100 Mechanical Ventilator 100 07/28/19 06:45 101 26 86/39 100 Mechanical Ventilator 100 07/28/19 06:30 101 20 07/28/19 06:30 101 26 95/39 100 Mechanical Ventilator 100 07/28/19 06:15 101 24 94/34 100 Mechanical Ventilator 100 07/28/19 06:00 101 25 94/34 100 Mechanical Ventilator 100 07/28/19 06:00 94/34 07/28/19 06:00 94/34 07/28/19 05:45 100 25 88/34 100 Mechanical Ventilator 100 07/28/19 05:30 98 25 81/35 100 Mechanical Ventilator 100 07/28/19 05:15 97 24 86/33 100 Mechanical Ventilator 100 07/28/19 05:00 86/07/28/19 05:00 86/33 07/28/19 05:00 98 24 88/32 100 Mechanical Ventilator 100 07/28/19 04:45 96 25 89/34 100 Mechanical Ventilator 100 07/28/19 04:40 96 25 100 07/28/19 04:30 95 25 94/34 100 Mechanical Ventilator 100 07/28/19 04:15 96 24 90/44 100 Mechanical Ventilator 100 07/28/19 04:00 98.7 93 24 94/36 100 Mechanical Ventilator 100 07/28/19 04:00 90/44 07/28/19 04:00 90/44 07/28/19 04:00 100 07/28/19 04:00 92 07/28/19 04:00 Mechanical Ventilator 07/28/19 03:45 93 25 99/36 100 Mechanical Ventilator 100 07/28/19 03:30 92 23 101/32 100 Mechanical Ventilator 100 07/28/19 03:15 92 24 106/39 Mechanical Ventilator 100 07/28/19 03:00 91 24 102/33 100 Mechanical Ventilator 100 07/28/19 03:00 106/39 07/28/19 03:00 106/36 07/28/19 02:45 92 25 104/37 100 Mechanical Ventilator 100 07/28/19 02:35 92 28 100 07/28/19 02:30 94 28 99/49 100 Mechanical Ventilator 100 07/28/19 02:15 96 25 117/36 99 Mechanical Ventilator 100 07/28/19 02:00 95 26 128/39 100 Mechanical Ventilator 100 07/28/19 02:00 117/36 07/28/19 02:00 117/36 07/28/19 01:45 94 23 127/40 100 Mechanical Ventilator 100 07/28/19 01:30 92 23 127/42 100 Mechanical Ventilator 100 07/28/19 01:28 94 22 100 07/28/19 01:15 91 22 127/42 100 Mechanical Ventilator 100 07/28/19 01:00 127/42 07/28/19 01:00 127/42 07/28/19 01:00 88 20 120/42 100 Mechanical Ventilator 100 07/28/19 00:45 87 19 126/38 100 Mechanical Ventilator 100 07/28/19 00:30 85 19 122/42 100 Mechanical Ventilator 100 07/28/19 00:15 84 23 112/46 100 Mechanical Ventilator 100 07/28/19 00:00 Mechanical Ventilator 07/28/19 00:00 83 25 124/35 100 Mechanical Ventilator 100 07/28/19 00:00 100 07/28/19 00:00 112/46 07/28/19 00:00 112/42 07/28/19 00:00 79 07/27/19 23:45 91.0 84 15 119/34 100 Mechanical Ventilator 100 07/27/19 23:30 81 19 124/38 100 Mechanical Ventilator 100 07/27/19 23:28 81 22 100 Mechanical Ventilator 100 82 15 100 07/27/19 23:15 80 22 121/36 100 Mechanical Ventilator 100 07/27/19 23:09 124/34 07/27/19 23:00 121/36 07/27/19 23:00 121/36 07/27/19 23:00 79 23 124/34 100 Mechanical Ventilator 100 07/27/19 22:45 77 19 123/30 100 Mechanical Ventilator 100 07/27/19 22:30 75 19 118/35 100 Mechanical Ventilator 100 07/27/19 22:15 75 19 118/35 100 Mechanical Ventilator 100 07/27/19 22:00 74 17 113/37 100 Mechanical Ventilator 100 07/27/19 22:00 118/35 07/27/19 22:00 118/35 07/27/19 21:45 73 17 111/40 98 Mechanical Ventilator 07/27/19 21:30 73 15 108/36 97 Mechanical Ventilator 07/27/19 21:15 72 15 108/36 100 Mechanical Ventilator 07/27/19 21:00 72 14 105/36 100 Mechanical Ventilator 07/27/19 21:00 105/36 07/27/19 21:00 105/36 07/27/19 20:50 72 14 100 07/27/19 20:45 72 14 103/46 100 Mechanical Ventilator 07/27/19 20:30 73 14 88/45 100 Mechanical Ventilator 07/27/19 20:15 74 14 71/46 100 Mechanical Ventilator 07/27/19 20:00 75 07/27/19 20:00 74 14 79/32 100 Mechanical Ventilator 07/27/19 20:00 79/32 07/27/19 20:00 79/32 07/27/19 20:00 100 07/27/19 20:00 Mechanical Ventilator 07/27/19 19:45 77 14 75/32 100 Mechanical Ventilator 07/27/19 19:30 79 14 74/35 100 Mechanical Ventilator 07/27/19 19:28 82/33 07/27/19 19:15 66 16 82/33 100 Mechanical Ventilator 07/27/19 19:00 Mechanical Ventilator 07/27/19 19:00 74/35 07/27/19 19:00 86.8 48 15 74/35 100 Mechanical Ventilator 100 07/27/19 18:59 63/30 07/27/19 18:38 52 14 100 07/27/19 18:10 98.9 50 24 83/35 100 Mechanical Ventilator 100 07/27/19 17:43 50 24 83/35 100 Mechanical Ventilator 07/27/19 17:35 83/35 07/27/19 17:06 75/50 07/27/19 16:53 48 19 100 07/27/19 16:50 68/46 07/27/19 16:30 62/45 07/27/19 16:20 50 27 57/43 100 Mechanical Ventilator 07/27/19 16:18 57/43 07/27/19 16:07 61/42 07/27/19 16:00 49 25 51/42 100 Mechanical Ventilator 07/27/19 15:57 54/34 07/27/19 15:48 52 26 100 07/27/19 14:59 62 25 73/44 100 Mechanical Ventilator 07/27/19 13:55 98.9 54 25 120/90 100 Mechanical Ventilator Height (Feet): 5 Height (Inches): 8.00 Weight (Pounds): 193 General Appearance: other - + vent and pressors HEENT: normocephalic, atraumatic, anicteric Respiratory/Chest: crackles/rales, rhonchi - bilaterally Cardiovascular: normal rate, regular rhythm Abdomen: soft, non tender, no organomegaly Genitourinary: other - + otero Microbiology Date/Time Source Procedure Growth Status 07/27/19 12:30 Sputum Induced Gram Stain Pending Resulted 07/27/19 12:30 Sputum Culture - Preliminary Gram Negative Bacillus 1 Resulted 07/27/19 13:00 Rectum Received Laboratory Tests Test 07/27/19 12:35 07/27/19 15:55 07/28/19 03:10 07/28/19 05:00 White Blood Count 10.0 K/UL (4.8-10.8) 25.4 K/UL (4.8-10.8) #*H Red Blood Count 2.81 M/UL (4.70-6.10) L 3.30 M/UL (4.70-6.10) L Hemoglobin 7.7 G/DL (14.2-18.0) L 9.4 G/DL (14.2-18.0) L Hematocrit 24.7 % (42.0-52.0) L 28.9 % (42.0-52.0) L Mean Corpuscular Volume 88 FL (80-99) 87 FL (80-99) Mean Corpuscular Hemoglobin 27.5 PG (27.0-31.0) 28.5 PG (27.0-31.0) Mean Corpuscular Hemoglobin Concent 31.3 G/DL (32.0-36.0) L 32.6 G/DL (32.0-36.0) Red Cell Distribution Width 21.4 % (11.6-14.8) H 20.1 % (11.6-14.8) H Platelet Count 161 K/UL (150-450) 176 K/UL (150-450) Mean Platelet Volume 7.9 FL (6.5-10.1) 7.4 FL (6.5-10.1) Neutrophils (%) (Auto) % (45.0-75.0) % (45.0-75.0) Lymphocytes (%) (Auto) % (20.0-45.0) % (20.0-45.0) Monocytes (%) (Auto) % (1.0-10.0) % (1.0-10.0) Eosinophils (%) (Auto) % (0.0-3.0) % (0.0-3.0) Basophils (%) (Auto) % (0.0-2.0) % (0.0-2.0) Differential Total Cells Counted 100 100 Neutrophils % (Manual) 58 % (45-75) 79 % (45-75) H Lymphocytes % (Manual) 18 % (20-45) L 4 % (20-45) L Monocytes % (Manual) 7 % (1-10) 5 % (1-10) Eosinophils % (Manual) 1 % (0-3) 3 % (0-3) Basophils % (Manual) 0 % (0-2) 0 % (0-2) Band Neutrophils 16 % (0-8) H 9 % (0-8) H Nucleated Red Blood Cells 23 /100 WBC 69 /100 WBC Platelet Estimate Adequate Adequate Platelet Morphology Normal Normal Hypochromasia 1+ 2+ Anisocytosis 2+ 2+ Prothrombin Time 15.6 SEC (9.30-11.50) H Prothromb Time International Ratio 1.5 (0.9-1.1) H Activated Partial Thromboplast Time 59 SEC (23-33) H > 150 SEC (23-33) *H Sodium Level 143 MMOL/L (136-145) 141 MMOL/L (136-145) Potassium Level 4.5 MMOL/L (3.5-5.1) 5.4 MMOL/L (3.5-5.1) H Chloride Level 110 MMOL/L (98-107) H 109 MMOL/L (98-107) H Carbon Dioxide Level 19 MMOL/L (21-32) L 21 MMOL/L (21-32) Anion Gap 15 mmol/L (5-15) 12 mmol/L (5-15) Blood Urea Nitrogen 36 mg/dL (7-18) H 39 mg/dL (7-18) H Creatinine 1.9 MG/DL (0.55-1.30) H 2.1 MG/DL (0.55-1.30) H Estimat Glomerular Filtration Rate 41.0 mL/min (>60) 36.5 mL/min (>60) Glucose Level 119 MG/DL (74-106) H 59 MG/DL (74-106) L Lactic Acid Level 5.80 mmol/L (0.4-2.0) H 6.60 mmol/L (0.66-2.22) H 5.60 mmol/L (0.4-2.0) H Calcium Level 10.3 MG/DL (8.5-10.1) H 9.7 MG/DL (8.5-10.1) Total Bilirubin 0.2 MG/DL (0.2-1.0) 0.3 MG/DL (0.2-1.0) Aspartate Amino Transf (AST/SGOT) 141 U/L (15-37) H 202 U/L (15-37) H Alanine Aminotransferase (ALT/SGPT) 93 U/L (12-78) H 108 U/L (12-78) H Alkaline Phosphatase 182 U/L (46-116) H 173 U/L (46-116) H Total Creatine Kinase 110 U/L (26-308) Creatine Kinase MB 17.2 NG/ML (0.0-3.6) H Creatine Kinase MB Relative Index 15.6 Troponin I 0.963 ng/mL (0.000-0.056) 1.540 ng/mL (0.000-0.056) Pro-B-Type Natriuretic Peptide 732 pg/mL (0-125) H Total Protein 5.4 G/DL (6.4-8.2) L 5.4 G/DL (6.4-8.2) L Albumin 1.1 G/DL (3.4-5.0) L 1.2 G/DL (3.4-5.0) L Globulin 4.3 g/dL 4.2 g/dL Albumin/Globulin Ratio 0.3 (1.0-2.7) L 0.3 (1.0-2.7) L Spherocytes 1+ Phosphorus Level 2.6 MG/DL (2.5-4.9) Magnesium Level 1.8 MG/DL (1.8-2.4) Test 07/28/19 10:16 07/28/19 12:05 Arterial Blood pH 7.376 (7.350-7.450) Arterial Blood Partial Pressure CO2 33.9 mmHg (35.0-45.0) L Arterial Blood Partial Pressure O2 215.0 mmHg (75.0-100.0) H Arterial Blood HCO3 19.4 mmol/L (22.0-26.0) L Arterial Blood Oxygen Saturation 99.0 % (95-100) Arterial Blood Base Excess -5.2 (-2-2) L En Test Positive Activated Partial Thromboplast Time Pending Lactic Acid Level Pending Random Vancomycin Level Pending Current Medications Medications (Trade) Dose Ordered Sig/Vicky Route PRN Reason Start Time Stop Time Status Last Admin Dose Admin Albuterol/ Ipratropium (Albuterol/ Ipratropium) 3 ml Q4H PRN HHN Shortness of Breath 07/27/19 19:15 08/01/19 19:14 Albuterol/ Ipratropium (Albuterol/ Ipratropium) 3 ml Q8HRT HHN 07/27/19 23:00 08/01/19 22:59 07/28/19 08:01 Chlorhexidine Gluconate (Annie-Hex 2%) 1 applic DAILY@2000 TOPIC 07/27/19 20:00 08/26/19 19:59 07/27/19 20:33 Dextrose/ Electrolytes 1,000 ml @ 75 mls/hr [id number] IV 07/28/19 11:30 08/27/19 11:29 07/28/19 11:48 Dopamine HCl/ Dextrose 250 ml @ 0 mls/hr Q24H IV 07/27/19 19:17 08/26/19 19:16 07/28/19 10:15 Doxycycline Monohydrate (Doxycycline Monohydrate) 100 mg EVERY 12 HOURS GT 07/27/19 21:00 08/03/19 20:59 07/28/19 09:17 Heparin Sodium/ Dextrose 500 ml @ 24.5 mls/hr ADJUST PER PROTOCOL IV 07/28/19 06:00 08/27/19 05:59 07/28/19 06:25 Hydrocortisone (Solu-CORTEF) 100 mg EVERY 8 HOURS IV 07/27/19 22:00 08/26/19 21:59 07/28/19 06:10 Lorazepam (Ativan 2mg/ml 1ml) 1 mg Q1H PRN IV For Seizures 07/27/19 20:30 08/03/19 20:29 Norepinephrine Bitartrate 16 mg/ Dextrose 500 ml @ 0 mls/hr Q24H IV 07/27/19 18:45 08/26/19 18:41 07/28/19 09:36 Pantoprazole (Protonix) 40 mg EVERY 12 HOURS IVP 07/28/19 21:00 08/27/19 20:59 Piperacillin Sod/ Tazobactam Sod 3.375 gm/Sodium Chloride 110 ml @ 27.5 mls/hr EVERY 8 HOURS IVPB 07/27/19 22:00 08/01/19 21:59 07/28/19 06:10 Vancomycin HCl (Vanco rx to dose) 1 ea DAILY PRN MISC Per rx protocol 07/27/19 18:45 08/26/19 18:44 Nabila Rodriguez MD Jul 28, 2019 12:35
[2019-07-28] MEDS ORDERED: Amikacin Rx to dose MISC PRN (12:45)
--- NOTE | 2019-07-28 13:41 | NUR ---
NURSE NOTES: Called Dr Nance to advise that patient is hypotensive despite being max on both Levo and Dopamine at this time. Request for PRN 3rd presser if patient continues to become hypotensive. Also, to report that patient is with luis a red blood from ETT and mouth. PTT was drawn and resulted >150. Advised Pharmacy that Heparin will be HELD at this time until further instruction from MD. Will await return call from .
[2019-07-28] MEDS ORDERED: Vancomycin 1gm/D5W 275ml IVPB ONE ×2 (14:00)
[2019-07-28] MEDS ORDERED: Amikacin 750 MG in NS 110 ML IV ONE (14:30)
--- NOTE | 2019-07-28 15:05 | Diagnostic Imaging Report ---
EXAM: US Duplex Bilateral Lower Extremity Veins CLINICAL HISTORY: DVT TECHNIQUE: Real-time duplex ultrasound scan of the bilateral lower extremity veins integrating B-mode two-dimensional vascular structure, Doppler spectral analysis, color flow Doppler imaging and compression. COMPARISON: No relevant prior studies available. FINDINGS: Limitations: Exam degraded by large body habitus, making some vessel segments difficult to visualize like the right popliteal vein. Right deep veins: Unremarkable. No DVT in the right common femoral, femoral, proximal deep femoral or popliteal veins. The veins demonstrate normal color flow, are normally compressible, with normal phasic flow and/or augmentation response. Right superficial veins: Unremarkable. Left deep veins: Unremarkable. No DVT in the left common femoral, femoral, proximal deep femoral or popliteal veins. The veins demonstrate normal color flow, are normally compressible, with normal phasic flow and/or augmentation response. Left superficial veins: Unremarkable. Soft tissues: No popliteal cyst. IMPRESSION: No evidence of DVT.
--- NOTE | 2019-07-28 15:05 | Diagnostic Imaging Report ---
EXAM: XR Chest, 1 View CLINICAL HISTORY: ABN CHST TECHNIQUE: Frontal view of the chest. COMPARISON: Chest x-ray dated 07/27/19 FINDINGS: Lungs: Subsegmental atelectasis versus infiltrate in the left lung base. No significant change in the interstitial and airspace opacities in bilateral lungs. Pleural space: Small layering left pleural effusion. Heart: Unremarkable. No cardiomegaly. Mediastinum: Unremarkable. Bones/joints: Unremarkable. Tubes, lines and devices: Stable positioning of the tracheostomy tube. Telemetry leads overlie the thorax. Right IJ central venous catheter with the tip in the SVC region. IMPRESSION: 1. Pulmonary edema with small left pleural effusion, not significantly changed from the prior day's chest x-ray. 2. Subsegmental atelectasis versus infiltrate in the left lung base.
--- NOTE | 2019-07-28 15:05 | Diagnostic Imaging Report ---
EXAM: US Abdomen Complete CLINICAL HISTORY: INFECT TECHNIQUE: Real-time ultrasound of the abdomen (complete) with image documentation. COMPARISON: No relevant prior studies available. FINDINGS: Liver: Liver diameter of 12 cm. No visible parenchymal lesions. No intrahepatic biliary ductal dilatation. Gallbladder: Gallbladder is not visualized, and may be surgically absent. Common bile duct: Common bile duct diameter of 3.7 mm, within normal limits. Pancreas: Unremarkable as visualized. Pancreatic body and tail are obscured by bowel gas. Kidneys: 3.1 cm simple-appearing cortical cyst in the right upper renal pole. Mild left hydronephrosis. Right kidney length of 9 cm. Normal cortical thickness. No other visible parenchymal lesions. No visible stones. No hydronephrosis. Left kidney length of 9.5 cm. Normal cortical thickness. No visible parenchymal lesions. No visible stones. Spleen: Spleen length of 6.2 cm, within normal limits. Aorta: Unremarkable. Visualized portions appear unremarkable without evidence of aneurysm. Inferior vena cava: Unremarkable. Pleural space: Bilateral pleural effusions. IMPRESSION: 1. Gallbladder is not visualized, and may be surgically absent. 2. 3.1 cm simple-appearing cortical cyst in the right upper renal pole. 3. Mild left hydronephrosis. 4. Bilateral pleural effusions.
--- NOTE | 2019-07-28 15:06 | Diagnostic Imaging Report ---
EXAM: US Retroperitoneal Complete, Renal CLINICAL HISTORY: Elevated renal function tests TECHNIQUE: Real-time ultrasound of the retroperitoneum (complete) with image documentation. COMPARISON: Abdominal ultrasound obtained earlier the same date. FINDINGS: Aorta: The abdominal aorta is obscured by bowel gas and cannot be evaluated. Inferior vena cava: Visualized IVC appears unremarkable. Right kidney: Right kidney measures 8.7 x 5.2 x 4.4 cm. Normal cortical thickness. 3.6 x 3.3 x 2.7 cm simple-appearing cortical cyst in the upper renal pole. . No visible stones. Mild hydronephrosis. Left kidney: Left kidney measures 9.7 x 4.8 x 4.7 cm. Normal cortical thickness. No visible parenchymal lesions. No visible stones. Mild hydronephrosis. Bladder: Najera catheter within the decompressed urinary bladder. IMPRESSION: 1. Mild bilateral hydronephrosis. 2. 3.6 cm simple-appearing cortical cyst in the right upper renal pole.
--- NOTE | 2019-07-28 15:26 | Consultation ---
History of Present Illness General Date patient seen: Jul 28, 2019 Chief Complaint: Generalized Weakness Present Illness HPI 84 years old gentleman with past medical history significant for hypertension, dementia, brain mass, history of tracheostomy and PEG placement, DVT and PE, hypertension, BPH, chronic kidney disease, who presented to the hospital from nursing facility, [facility] after he was noted to have altered mental status and weakness. History is very limited secondary to the patient's status. Surgery called to assist with care and management. Patient seen, patient [facility], chart reviewed. Patient currently very septic on multiple pressors deteriorating. On vent support. Allergies: Coded Allergies: No Known Allergies (Unverified , 07/27/19) Medication History Scheduled Apixaban (Eliquis), 5 MG GT BID, (Reported) Ascorbic Acid* (Ascorbic Acid*), 500 MG GT DAILY, (Reported) Cranberry Extract (Cranberry), 500 MG PO DAILY, (Reported) Dorzolamide HCl/Pf (Dorzolamide 2% Eye Drop), 1 DROP OP BID, (Reported) Ferrous Sulfate* (Ferrous Sulfate*), 325 MG GT DAILY, (Reported) Finasteride* (Proscar*), 5 MG GT DAILY, (Reported) Hydralazine Hcl* (Hydralazine Hcl*), 12.5 MG ORAL EVERY 6 HOURS, (Reported) Ipratropium/Albuterol Sulfate (DuoNeb 0.5-3(2.5)mg/3ml), 3 ML HHN EVERY 6 HOURS, (Reported) Lactulose (Lactulose*), 30 ML ORAL EVERY 6 HOURS, (Reported) Latanoprost/Pf (Latanoprost 0.005% Eye Drop), 1 DRP OP BEDTIME, (Reported) Sennosides (Senna), 17.2 MG GT BEDTIME, (Reported) Tamsulosin HCl (Flomax), 0.4 MG GT DAILY, (Reported) Theophylline Anhydrous (Theophylline), 80 MG GT FIVE TIMES A DAY, (Reported) Scheduled PRN Acetaminophen 160MG/5ML* (Acetaminophen*), 650 MG GT EVERY 4 HOURS PRN for Fever /Headache/Mild Pain, (Reported) Polyethylene Glycol 3350* (Polyethylene Glycol 3350*), 17 GM ORAL BEDTIME PRN for Constipation, (Reported) Patient History Limited by: medical condition History Provided By: Medical Record, PMD Healthcare decision maker Resuscitation status Full Code Advanced Directive on File Past Medical/Surgical History Past Medical/Surgical History: (1) Chronic respiratory failure (2) Septic shock (3) Renal insufficiency (4) Seizure (5) UTI (urinary tract infection) (6) Pneumonia (7) Severe sepsis Review of Systems ROS Narrative Unable to obtain given patient's baseline medical condition Physical Exam General Appearance: moderate distress Lines, tubes and drains: central line HEENT: other Neck: trach Respiratory/Chest: on vent Cardiovascular/Chest: tachycardia Abdomen: soft, no organomegaly, no mass, feeding tube Genitourinary/Rectal: otero Extremities: normal inspection Skin Exam: warm/dry Neurologic: unresponsiveness Last 24 Hour Vital Signs Date Time Temp Pulse Resp B/P (MAP) Pulse Ox O2 Delivery O2 Flow Rate FiO2 07/28/19 14:18 79/32 07/28/19 13:21 90 28 100 07/28/19 13:05 82/36 07/28/19 13:00 86 24 82/36 100 Mechanical Ventilator 100 07/28/19 12:00 Mechanical Ventilator 07/28/19 12:00 98.9 107 25 100/38 100 Mechanical Ventilator 100 07/28/19 12:00 100 07/28/19 11:30 109 25 107/36 100 Mechanical Ventilator 100 07/28/19 11:15 110 07/28/19 11:00 97/32 07/28/19 11:00 97/32 07/28/19 11:00 97 25 97/32 100 Mechanical Ventilator 100 07/28/19 10:30 102 25 97/39 100 Mechanical Ventilator 100 07/28/19 10:15 94/34 07/28/19 10:00 104 24 94/34 100 Mechanical Ventilator 100 07/28/19 10:00 96/32 07/28/19 10:00 96/32 07/28/19 09:45 93 23 94/36 100 Mechanical Ventilator 100 07/28/19 09:38 95/37 07/28/19 09:36 95/37 07/28/19 09:30 94 22 95/37 100 Mechanical Ventilator 100 07/28/19 09:15 93 24 95/34 100 Mechanical Ventilator 100 07/28/19 09:00 97 23 93/36 100 Mechanical Ventilator 100 07/28/19 08:45 96 24 94/34 100 Mechanical Ventilator 100 07/28/19 08:01 101 29 100 Mechanical Ventilator 90 100 24 90 07/28/19 08:00 99.4 101 29 91/37 100 Mechanical Ventilator 100 07/28/19 08:00 100 07/28/19 08:00 Mechanical Ventilator 07/28/19 07:44 92 07/28/19 07:30 101 25 94/37 100 Mechanical Ventilator 100 07/28/19 07:00 92/33 07/28/19 07:00 92/33 07/28/19 07:00 102 26 90/35 100 Mechanical Ventilator 100 07/28/19 06:45 101 26 86/39 100 Mechanical Ventilator 100 07/28/19 06:30 101 20 07/28/19 06:30 101 26 95/39 100 Mechanical Ventilator 100 07/28/19 06:15 101 24 94/34 100 Mechanical Ventilator 100 07/28/19 06:00 101 25 94/34 100 Mechanical Ventilator 100 07/28/19 06:00 94/34 07/28/19 06:00 94/34 07/28/19 05:45 100 25 88/34 100 Mechanical Ventilator 100 07/28/19 05:30 98 25 81/35 100 Mechanical Ventilator 100 07/28/19 05:15 97 24 86/33 100 Mechanical Ventilator 100 07/28/19 05:00 86/33 07/28/19 05:00 86/33 07/28/19 05:00 98 24 88/32 100 Mechanical Ventilator 100 07/28/19 04:45 96 25 89/34 100 Mechanical Ventilator 100 07/28/19 04:40 96 25 100 07/28/19 04:30 95 25 94/34 100 Mechanical Ventilator 100 07/28/19 04:15 96 24 90/44 100 Mechanical Ventilator 100 07/28/19 04:00 98.7 93 24 94/36 100 Mechanical Ventilator 100 07/28/19 04:00 90/44 07/28/19 04:00 90/07/28/19 04:00 100 07/28/19 04:00 92 07/28/19 04:00 Mechanical Ventilator 07/28/19 03:45 93 25 99/36 100 Mechanical Ventilator 100 07/28/19 03:30 92 23 101/32 100 Mechanical Ventilator 100 07/28/19 03:15 92 24 106/39 Mechanical Ventilator 100 07/28/19 03:00 91 24 102/33 100 Mechanical Ventilator 100 07/28/19 03:00 106/39 07/28/19 03:00 106/36 07/28/19 02:45 92 25 104/37 100 Mechanical Ventilator 100 07/28/19 02:35 92 28 100 07/28/19 02:30 94 28 99/49 100 Mechanical Ventilator 100 07/28/19 02:15 96 25 117/36 99 Mechanical Ventilator 100 07/28/19 02:00 95 26 128/39 100 Mechanical Ventilator 100 07/28/19 02:00 117/36 07/28/19 02:00 117/36 07/28/19 01:45 94 23 127/40 100 Mechanical Ventilator 100 07/28/19 01:30 92 23 127/42 100 Mechanical Ventilator 100 07/28/19 01:28 94 22 100 07/28/19 01:15 91 22 127/42 100 Mechanical Ventilator 100 07/28/19 01:00 127/42 07/28/19 01:00 127/42 07/28/19 01:00 88 20 120/42 100 Mechanical Ventilator 100 07/28/19 00:45 87 19 126/38 100 Mechanical Ventilator 100 07/28/19 00:30 85 19 122/42 100 Mechanical Ventilator 100 07/28/19 00:15 84 23 112/46 100 Mechanical Ventilator 100 07/28/19 00:00 Mechanical Ventilator 07/28/19 00:00 83 25 124/35 100 Mechanical Ventilator 100 07/28/19 00:00 100 07/28/19 00:00 112/46 07/28/19 00:00 112/42 07/28/19 00:00 79 07/27/19 23:45 91.0 84 15 119/34 100 Mechanical Ventilator 100 07/27/19 23:30 81 19 124/38 100 Mechanical Ventilator 100 07/27/19 23:28 81 22 100 Mechanical Ventilator 100 82 15 100 07/27/19 23:15 80 22 121/36 100 Mechanical Ventilator 100 07/27/19 23:09 124/34 07/27/19 23:00 121/36 07/27/19 23:00 121/36 07/27/19 23:00 79 23 124/34 100 Mechanical Ventilator 100 07/27/19 22:45 77 19 123/30 100 Mechanical Ventilator 100 07/27/19 22:30 75 19 118/35 100 Mechanical Ventilator 100 07/27/19 22:15 75 19 118/35 100 Mechanical Ventilator 100 07/27/19 22:00 74 17 113/37 100 Mechanical Ventilator 100 07/27/19 22:00 118/35 07/27/19 22:00 118/35 07/27/19 21:45 73 17 111/40 98 Mechanical Ventilator 07/27/19 21:30 73 15 108/36 97 Mechanical Ventilator 07/27/19 21:15 72 15 108/36 100 Mechanical Ventilator 07/27/19 21:00 72 14 105/36 100 Mechanical Ventilator 07/27/19 21:00 105/36 07/27/19 21:00 105/36 07/27/19 20:50 72 14 100 07/27/19 20:45 72 14 103/46 100 Mechanical Ventilator 07/27/19 20:30 73 14 88/45 100 Mechanical Ventilator 07/27/19 20:15 74 14 71/46 100 Mechanical Ventilator 07/27/19 20:00 75 07/27/19 20:00 74 14 79/32 100 Mechanical Ventilator 07/27/19 20:00 79/32 07/27/19 20:00 79/32 07/27/19 20:00 100 07/27/19 20:00 Mechanical Ventilator 07/27/19 19:45 77 14 75/32 100 Mechanical Ventilator 07/27/19 19:30 79 14 74/35 100 Mechanical Ventilator 07/27/19 19:28 82/33 07/27/19 19:15 66 16 82/33 100 Mechanical Ventilator 07/27/19 19:00 Mechanical Ventilator 07/27/19 19:00 74/35 07/27/19 19:00 86.8 48 15 74/35 100 Mechanical Ventilator 100 07/27/19 18:59 63/30 07/27/19 18:38 52 14 100 07/27/19 18:10 98.9 50 24 83/35 100 Mechanical Ventilator 100 07/27/19 17:43 50 24 83/35 100 Mechanical Ventilator 07/27/19 17:35 83/35 07/27/19 17:06 75/50 07/27/19 16:53 48 19 100 07/27/19 16:50 68/46 07/27/19 16:30 62/45 07/27/19 16:20 50 27 57/43 100 Mechanical Ventilator 07/27/19 16:18 57/43 07/27/19 16:07 61/42 07/27/19 16:00 49 25 51/42 100 Mechanical Ventilator 07/27/19 15:57 54/34 07/27/19 15:48 52 26 100 Intake and Output 07/27/19 07/28/19 19:00 07:00 Intake Total 33.75 ml 1419.842 ml Output Total 60 ml Balance 33.75 ml 1359.842 ml IV Total 33.75 ml 1419.842 ml Output Urine Total 60 ml # Voids 1 Laboratory Tests Test 07/27/19 15:55 07/28/19 03:10 07/28/19 05:00 07/28/19 10:16 Lactic Acid Level 6.60 mmol/L (0.66-2.22) H 5.60 mmol/L (0.4-2.0) H Activated Partial Thromboplast Time > 150 SEC (23-33) *H White Blood Count 25.4 K/UL (4.8-10.8) #*H Red Blood Count 3.30 M/UL (4.70-6.10) L Hemoglobin 9.4 G/DL (14.2-18.0) L Hematocrit 28.9 % (42.0-52.0) L Mean Corpuscular Volume 87 FL (80-99) Mean Corpuscular Hemoglobin 28.5 PG (27.0-31.0) Mean Corpuscular Hemoglobin Concent 32.6 G/DL (32.0-36.0) Red Cell Distribution Width 20.1 % (11.6-14.8) H Platelet Count 176 K/UL (150-450) Mean Platelet Volume 7.4 FL (6.5-10.1) Neutrophils (%) (Auto) % (45.0-75.0) Lymphocytes (%) (Auto) % (20.0-45.0) Monocytes (%) (Auto) % (1.0-10.0) Eosinophils (%) (Auto) % (0.0-3.0) Basophils (%) (Auto) % (0.0-2.0) Differential Total Cells Counted 100 Neutrophils % (Manual) 79 % (45-75) H Lymphocytes % (Manual) 4 % (20-45) L Monocytes % (Manual) 5 % (1-10) Eosinophils % (Manual) 3 % (0-3) Basophils % (Manual) 0 % (0-2) Band Neutrophils 9 % (0-8) H Nucleated Red Blood Cells 69 /100 WBC Platelet Estimate Adequate Platelet Morphology Normal Hypochromasia 2+ Anisocytosis 2+ Spherocytes 1+ Sodium Level 141 MMOL/L (136-145) Potassium Level 5.4 MMOL/L (3.5-5.1) H Chloride Level 109 MMOL/L (98-107) H Carbon Dioxide Level 21 MMOL/L (21-32) Anion Gap 12 mmol/L (5-15) Blood Urea Nitrogen 39 mg/dL (7-18) H Creatinine 2.1 MG/DL (0.55-1.30) H Estimat Glomerular Filtration Rate 36.5 mL/min (>60) Glucose Level 59 MG/DL (74-106) L Calcium Level 9.7 MG/DL (8.5-10.1) Phosphorus Level 2.6 MG/DL (2.5-4.9) Magnesium Level 1.8 MG/DL (1.8-2.4) Total Bilirubin 0.3 MG/DL (0.2-1.0) Aspartate Amino Transf (AST/SGOT) 202 U/L (15-37) H Alanine Aminotransferase (ALT/SGPT) 108 U/L (12-78) H Alkaline Phosphatase 173 U/L (46-116) H Troponin I 1.540 ng/mL (0.000-0.056) Total Protein 5.4 G/DL (6.4-8.2) L Albumin 1.2 G/DL (3.4-5.0) L Globulin 4.2 g/dL Albumin/Globulin Ratio 0.3 (1.0-2.7) L Arterial Blood pH 7.376 (7.350-7.450) Arterial Blood Partial Pressure CO2 33.9 mmHg (35.0-45.0) L Arterial Blood Partial Pressure O2 215.0 mmHg (75.0-100.0) H Arterial Blood HCO3 19.4 mmol/L (22.0-26.0) L Arterial Blood Oxygen Saturation 99.0 % (95-100) Arterial Blood Base Excess -5.2 (-2-2) L En Test Positive Test 2/15/20 12:05 07/28/19 13:25 Activated Partial Thromboplast Time > 150 SEC (23-33) *H Lactic Acid Level 5.80 mmol/L (0.4-2.0) H 3.70 mmol/L (0.66-2.22) H Random Vancomycin Level 15.5 ug/mL Height (Feet): 5 Height (Inches): 8.00 Weight (Pounds): 193 Medications Current Medications Medications (Trade) Dose Ordered Sig/Vicky Route PRN Reason Start Time Stop Time Status Last Admin Dose Admin Albuterol/ Ipratropium (Albuterol/ Ipratropium) 3 ml Q4H PRN HHN Shortness of Breath 07/27/19 19:15 08/01/19 19:14 Albuterol/ Ipratropium (Albuterol/ Ipratropium) 3 ml Q8HRT HHN 07/27/19 23:00 08/01/19 22:59 07/28/19 08:01 Amikacin Protocol (Amikacin pharmacy to dose) 1 ea DAILY PRN MISC Per rx protocol 07/28/19 12:45 08/27/19 12:44 Amikacin Sulfate 750 mg/Sodium Chloride 113 ml @ 113 mls/hr ONCE ONCE IV 07/28/19 14:30 07/28/19 15:29 07/28/19 14:37 Chlorhexidine Gluconate (Annie-Hex 2%) 1 applic DAILY@2000 TOPIC 07/27/19 20:00 08/26/19 19:59 07/27/19 20:33 Dextrose/ Electrolytes 1,000 ml @ 75 mls/hr [id number] IV 07/28/19 11:30 08/27/19 11:29 07/28/19 11:48 Dopamine HCl/ Dextrose 250 ml @ 0 mls/hr Q24H IV 07/27/19 19:17 08/26/19 19:16 07/28/19 14:18 Doxycycline Monohydrate (Doxycycline Monohydrate) 100 mg EVERY 12 HOURS GT 07/27/19 21:00 08/03/19 20:59 07/28/19 09:17 Heparin Sodium/ Dextrose 500 ml @ 17.5 mls/hr ADJUST PER PROTOCOL IV 07/28/19 14:45 08/27/19 14:44 Hydrocortisone (Solu-CORTEF) 100 mg EVERY 8 HOURS IV 07/27/19 22:00 08/26/19 21:59 07/28/19 14:18 Lorazepam (Ativan 2mg/ml 1ml) 1 mg Q1H PRN IV For Seizures 07/27/19 20:30 08/03/19 20:29 Norepinephrine Bitartrate 16 mg/ Dextrose 500 ml @ 0 mls/hr Q24H IV 07/27/19 18:45 08/26/19 18:41 07/28/19 13:05 Pantoprazole (Protonix) 40 mg EVERY 12 HOURS IVP 07/28/19 21:00 08/27/19 20:59 Piperacillin Sod/ Tazobactam Sod 3.375 gm/Sodium Chloride 110 ml @ 27.5 mls/hr EVERY 8 HOURS IVPB 07/27/19 22:00 08/01/19 21:59 07/28/19 14:18 Vancomycin HCl (Vanco rx to dose) 1 ea DAILY PRN MISC Per rx protocol 07/27/19 18:45 08/26/19 18:44 Vancomycin HCl 1 gm/Dextrose 275 ml @ 183.708 mls/hr ONCE ONCE IVPB 07/28/19 14:00 07/28/19 15:29 07/28/19 13:52 Assessment/Plan Problem List: (1) Septic shock Assessment & Plan: 84-year-old male in septic shock in the intensive care unit on pressors. Leukocytosis, lactic acidosis, abnormal labs. Patient ill and declining. Prognosis guarded. Labs reviewed, imaging reviewed, full examination performed. No surgical intervention currently indicated recommended. Furthermore patient identified to have significant deterioration of his perirectal and sacral area from incontinence seemingly. Macerated skin identified. Local care instructions placed. Turn every 2 hours. Offload pressure with pillows. Air mattress. Nutritional optimization. We will follow with recommendations. Thank you for let me participate in patient's care ICD Codes: A41.9 - Sepsis, unspecified organism; R65.21 - Severe sepsis with septic shock SNOMED: 13589834 (2) Chronic respiratory failure ICD Codes: J96.10 - Chronic respiratory failure, unspecified whether with hypoxia or hypercapnia SNOMED: 83145891 Qualifiers: Qualified Codes: J96.10 - Chronic respiratory failure, unspecified whether with hypoxia or hypercapnia (3) Renal insufficiency ICD Codes: N28.9 - Disorder of kidney and ureter, unspecified; R65.20 - Severe sepsis without septic shock SNOMED: 134931877, 176685271 (4) Seizure ICD Codes: R56.9 - Unspecified convulsions; R65.20 - Severe sepsis without septic shock SNOMED: 85345380, 223246449 (5) UTI (urinary tract infection) ICD Codes: N39.0 - Urinary tract infection, site not specified SNOMED: 18940961, 018464670 Qualifiers: Qualified Codes: N39.0 - Urinary tract infection, site not specified (6) Pneumonia ICD Codes: J18.9 - Pneumonia, unspecified organism SNOMED: 594034259, 492213904 Qualifiers: Qualified Codes: J18.9 - Pneumonia, unspecified organism (7) Severe sepsis ICD Codes: A41.9 - Sepsis, unspecified organism; R65.20 - Severe sepsis without septic shock SNOMED: 58527211 Farhan Herrera Jul 28, 2019 15:26
--- NOTE | 2019-07-28 15:43 | NUR ---
NURSE NOTES: Patient remains hypotensive BP 93/43 while on Levophed at 30mcg/min and Dopamine at 20mcg/kg/min. All prescribed medications given as ordered. Patient reacts to pain. Remains obtunded. Will continue to monitor.
[2019-07-28] MEDS ORDERED: Tubing IV Secondary IV ONE (15:53)
[2019-07-28] MEDS ORDERED: NS 275ml ONE (15:53)
--- NOTE | 2019-07-28 16:00 | NUR ---
NURSE NOTES: Spoke to Dr. Witt, orders received.
--- NOTE | 2019-07-28 16:39 | NUR ---
NURSE NOTES: Left message to Dr. Nance's office regarding EKG.
--- NOTE | 2019-07-28 18:33 | Internal Med Progress Note ---
Subjective Date of Service: Jul 28, 2019 Physician Name LeonardCipriano Attending Physician Rufus Witt MD Current Medications Medications (Trade) Dose Ordered Sig/Vicky Route PRN Reason Start Time Stop Time Status Last Admin Dose Admin Albuterol/ Ipratropium (Albuterol/ Ipratropium) 3 ml Q4H PRN HHN Shortness of Breath 07/27/19 19:15 08/01/19 19:14 Albuterol/ Ipratropium (Albuterol/ Ipratropium) 3 ml Q8HRT HHN 07/27/19 23:00 08/01/19 22:59 07/28/19 15:40 Amikacin Protocol (Amikacin pharmacy to dose) 1 ea DAILY PRN MISC Per rx protocol 07/28/19 12:45 08/27/19 12:44 Chlorhexidine Gluconate (Annie-Hex 2%) 1 applic DAILY@2000 TOPIC 07/27/19 20:00 08/26/19 19:59 07/27/19 20:33 Dextrose/ Electrolytes 1,000 ml @ 75 mls/hr [id number] IV 07/28/19 11:30 08/27/19 11:29 07/28/19 11:48 Dopamine HCl/ Dextrose 250 ml @ 0 mls/hr Q24H IV 07/27/19 19:17 08/26/19 19:16 07/28/19 18:22 Doxycycline Monohydrate (Doxycycline Monohydrate) 100 mg EVERY 12 HOURS GT 07/27/19 21:00 08/03/19 20:59 07/28/19 09:17 Heparin Sodium/ Dextrose 500 ml @ 17.5 mls/hr ADJUST PER PROTOCOL IV 07/28/19 14:45 08/27/19 14:44 Hydrocortisone (Solu-CORTEF) 100 mg EVERY 8 HOURS IV 07/27/19 22:00 08/26/19 21:59 07/28/19 14:18 Lorazepam (Ativan 2mg/ml 1ml) 1 mg Q1H PRN IV For Seizures 07/27/19 20:30 08/03/19 20:29 Norepinephrine Bitartrate 16 mg/ Dextrose 500 ml @ 0 mls/hr Q24H IV 07/27/19 18:45 08/26/19 18:41 07/28/19 13:05 Pantoprazole (Protonix) 40 mg EVERY 12 HOURS IVP 07/28/19 21:00 08/27/19 20:59 Phenylephrine HCl 50 mg/Dextrose 250 ml @ 0 mls/hr Q24H PRN IV HYPOTENSION 07/28/19 17:30 08/27/19 17:29 Piperacillin Sod/ Tazobactam Sod 3.375 gm/Sodium Chloride 110 ml @ 27.5 mls/hr EVERY 8 HOURS IVPB 07/27/19 22:00 08/01/19 21:59 07/28/19 14:18 Vancomycin HCl (Vanco rx to dose) 1 ea DAILY PRN MISC Per rx protocol 07/27/19 18:45 08/26/19 18:44 Allergies: Coded Allergies: No Known Allergies (Unverified , 07/27/19) ROS Limited/Unobtainable: Yes Subjective 84 YO M admitted with altered mental status. Now sepsis and renal failure. Cover for Int Jacques-Dr Witt. ICU. Continues on pressors Objective Last Vital Signs Date Time Temp Pulse Resp B/P (MAP) Pulse Ox O2 Delivery O2 Flow Rate FiO2 07/28/19 18:22 90/46 07/28/19 17:12 92 26 100 Mechanical Ventilator 100 75 24 90 07/28/19 16:00 98.8 Laboratory Tests Test 07/28/19 03:10 07/28/19 05:00 07/28/19 10:16 07/28/19 12:05 Activated Partial Thromboplast Time > 150 SEC (23-33) *H > 150 SEC (23-33) *H Lactic Acid Level 5.60 mmol/L (0.4-2.0) H 5.80 mmol/L (0.4-2.0) H White Blood Count 25.4 K/UL (4.8-10.8) #*H Red Blood Count 3.30 M/UL (4.70-6.10) L Hemoglobin 9.4 G/DL (14.2-18.0) L Hematocrit 28.9 % (42.0-52.0) L Mean Corpuscular Volume 87 FL (80-99) Mean Corpuscular Hemoglobin 28.5 PG (27.0-31.0) Mean Corpuscular Hemoglobin Concent 32.6 G/DL (32.0-36.0) Red Cell Distribution Width 20.1 % (11.6-14.8) H Platelet Count 176 K/UL (150-450) Mean Platelet Volume 7.4 FL (6.5-10.1) Neutrophils (%) (Auto) % (45.0-75.0) Lymphocytes (%) (Auto) % (20.0-45.0) Monocytes (%) (Auto) % (1.0-10.0) Eosinophils (%) (Auto) % (0.0-3.0) Basophils (%) (Auto) % (0.0-2.0) Differential Total Cells Counted 100 Neutrophils % (Manual) 79 % (45-75) H Lymphocytes % (Manual) 4 % (20-45) L Monocytes % (Manual) 5 % (1-10) Eosinophils % (Manual) 3 % (0-3) Basophils % (Manual) 0 % (0-2) Band Neutrophils 9 % (0-8) H Nucleated Red Blood Cells 69 /100 WBC Platelet Estimate Adequate Platelet Morphology Normal Hypochromasia 2+ Anisocytosis 2+ Spherocytes 1+ Sodium Level 141 MMOL/L (136-145) Potassium Level 5.4 MMOL/L (3.5-5.1) H Chloride Level 109 MMOL/L (98-107) H Carbon Dioxide Level 21 MMOL/L (21-32) Anion Gap 12 mmol/L (5-15) Blood Urea Nitrogen 39 mg/dL (7-18) H Creatinine 2.1 MG/DL (0.55-1.30) H Estimat Glomerular Filtration Rate 36.5 mL/min (>60) Glucose Level 59 MG/DL (74-106) L Calcium Level 9.7 MG/DL (8.5-10.1) Phosphorus Level 2.6 MG/DL (2.5-4.9) Magnesium Level 1.8 MG/DL (1.8-2.4) Total Bilirubin 0.3 MG/DL (0.2-1.0) Aspartate Amino Transf (AST/SGOT) 202 U/L (15-37) H Alanine Aminotransferase (ALT/SGPT) 108 U/L (12-78) H Alkaline Phosphatase 173 U/L (46-116) H Troponin I 1.540 ng/mL (0.000-0.056) Total Protein 5.4 G/DL (6.4-8.2) L Albumin 1.2 G/DL (3.4-5.0) L Globulin 4.2 g/dL Albumin/Globulin Ratio 0.3 (1.0-2.7) L Arterial Blood pH 7.376 (7.350-7.450) Arterial Blood Partial Pressure CO2 33.9 mmHg (35.0-45.0) L Arterial Blood Partial Pressure O2 215.0 mmHg (75.0-100.0) H Arterial Blood HCO3 19.4 mmol/L (22.0-26.0) L Arterial Blood Oxygen Saturation 99.0 % (95-100) Arterial Blood Base Excess -5.2 (-2-2) L En Test Positive Random Vancomycin Level 15.5 ug/mL Test 07/28/19 13:25 Lactic Acid Level 3.70 mmol/L (0.66-2.22) H Microbiology Date/Time Source Procedure Growth Status 07/27/19 12:30 Sputum Induced Gram Stain - Final Resulted 07/27/19 12:30 Sputum Culture - Preliminary Gram Negative Bacillus 1 Resulted 07/27/19 13:00 Rectum Received Intake and Output 07/27/19 07/28/19 19:00 07:00 Intake Total 33.75 ml 1419.842 ml Output Total 60 ml Balance 33.75 ml 1359.842 ml IV Total 33.75 ml 1419.842 ml Output Urine Total 60 ml # Voids 1 Objective PHYSICAL EXAMINATION: GENERAL: The patient is not responsive, cannot follow commands. Unable to open his eyes. HEENT: Head and neck examination, pupils equal and reactive to the light. Oral cavity has a full dentition with dry mouth and buccal cavity. NECK: Supple. Tracheostomy site is intact. No sign of drainage. HEART: S1, S2. Distant heart sounds. No murmur or gallop. LUNGS: Bilateral air entry and mechanical breath sounds. No wheeze. Occasional rhonchi. ABDOMEN: Soft, nondistended, nontender. PEG site is clean. PELVIC: Has a Najera catheter as well as a scar on the right hip area from previous surgery was noted, hip replacement. EXTREMITIES: +2 edema bilateral lower extremities. NEUROLOGIC: Neurologic examination is limited secondary to the patient's status. Presently, the patient is unresponsive, cannot follow commands. BACK: The patient has a stage DTI on the bilateral perianal area with mild bleeding, presented on admission. Assessment/Plan Assessment/Plan ASSESSMENT: 1. Septic shock. 2. Acute kidney injury, chronic renal insufficiency. 3. History of DVT and PE. 4. Acute respiratory failure, on chronic vent dependent. 5. Status post PEG placement. 6. BPH. 7. History of hypertension, presently hypotensive. 8. Sacral decubitus ulcer, presented on admission. 9. Severe protein-calorie malnutrition. 10. Toxic metabolic encephalopathy. 11. Brain mass. PLAN: 1. Admit the patient to ICU. 2. Sputum cultures=pending. 3. antibiotics= vancomycin, Zosyn and amikacin. 4. Code status at this time is Full Code. 5. DVT prophylaxis, heparin drip. We will follow up with a duplex of 6. Infectious Disease consultation, Dr. Nabila Rodriguez, 7. Dr. Shantell Sosa, Pulmonary, Critical Care 8. Dr. Herrera from Wound management, Wound Care, 9. Dr. Jim Nance from Cardiology. Cipriano Leonard MD Jul 28, 2019 18:33
--- NOTE | 2019-07-28 18:50 | NUR ---
NURSE NOTES: Bed bath given to patient, turned and repositioned. Will continue to monitor.
--- NOTE | 2019-07-28 19:00 | NUR ---
RESPIRATORY NOTE:pt recieved on AC 14 500 90% +5, no SOB or discomfort noted, trach intact with minimal bleeding arround stoma and in glover, sx PRN, sat 100% will continue to monitor the pts progress
--- NOTE | 2019-07-28 19:08 | NUR ---
HAND-OFF: Report given to Grace ROWAN.
--- NOTE | 2019-07-28 19:09 | NUR ---
NURSE NOTES: Endorsement received from HARPAL Leone. Patient does not open eyes, no response to pain. Trache to vent, Shiley 7.5. AC 14, 500, PEEP 5, 100%. Right IJ TLC, receiving dopamine at 20mcg/kg/min, levophed double conc 30mcg/min, D5 1/2 NS with KCl 10meq at 75ml/hr. Right hand g18 heplock. GT patent and intact. Najera catheter F16 connected to urine bag. On seizure precautions. Head of bed elevated. Bed locked and in low position. Bed alarm on. Call light within reach
[2019-07-28] MEDS: Dyna-Hex 2% Top Sol 2oz TOPIC SCH (20:00)
--- NOTE | 2019-07-28 20:00 | NUR ---
NURSE NOTES: SBP in the 80s, neosynephrine drip started at 100mcg/min. Blood sugar from morning labs shows 59, bedside blood sugar check done: 181mg/dl.
[2019-07-28] MEDS: Phenylephrine 50 MG in D5W 245 ML IV PRN (20:01)
[2019-07-28] MEDS: Pantoprazole Inj IVP SCH (20:38)
--- NOTE | 2019-07-28 22:00 | NUR ---
NURSE NOTES: Patient condition remains the same. Secretions suctioned, noted with scant but thick reddish secretion from trache.
--- NOTE | 2019-07-28 22:01 | Cardiology Progress Note ---
Assessment/Plan Assessment/Plan 1. Septic shock. Max'ed out on levophed and dopamine gtts, will add neosynephrine drip at 5 mcg to keep MAP at 65 mmHg. 250 cc NS IV bolus did not touch his BP. 2. Slight elevation of troponin I level with the demand ischemia with non-ST elevation myocardial infarction type 2 in the presence of sepsis and renal failure. 2D echocardiography shows normal LV systolic function with LVEF at 65% with normal intracardiac filling pressure. 3. Ventilatory derived respiratory failure, status post tracheostomy tube placement. 4. Dysphagia, status post PEG placement. Subjective Subjective Sinus rhythm at rate of 99. Max'ed out on levophed and dopamine gtts. Objective Last 24 Hour Vital Signs Date Time Temp Pulse Resp B/P (MAP) Pulse Ox O2 Delivery O2 Flow Rate FiO2 07/28/19 21:44 112/45 07/28/19 21:23 110/52 07/28/19 20:01 99 89/51 07/28/19 19:00 99/56 07/28/19 19:00 99/56 07/28/19 19:00 93 23 99/56 100 Mechanical Ventilator 100 07/28/19 18:55 99 25 90 07/28/19 18:22 90/46 07/28/19 18:00 101 22 75/33 100 Mechanical Ventilator 100 07/28/19 18:00 86/45 07/28/19 18:00 86/45 07/28/19 17:12 92 26 100 Mechanical Ventilator 100 75 24 90 07/28/19 17:00 79 20 99/46 100 Mechanical Ventilator 100 07/28/19 17:00 98/42 07/28/19 17:00 98/42 07/28/19 16:00 98.8 93 20 95/41 100 Mechanical Ventilator 100 07/28/19 16:00 100 07/28/19 16:00 104/43 07/28/19 16:00 104/43 07/28/19 16:00 Mechanical Ventilator 07/28/19 15:24 76 24 100 Mechanical Ventilator 100 75 24 90 07/28/19 15:24 91 07/28/19 15:00 77 25 76/45 Mechanical Ventilator 100 07/28/19 15:00 85/36 07/28/19 15:00 85/36 07/28/19 14:18 79/32 07/28/19 14:00 79/32 07/28/19 14:00 79/32 07/28/19 14:00 77 24 86/38 Mechanical Ventilator 100 07/28/19 13:21 90 28 100 07/28/19 13:05 82/36 07/28/19 13:00 82/36 07/28/19 13:00 82/36 07/28/19 13:00 86 24 82/36 100 Mechanical Ventilator 100 07/28/19 12:00 Mechanical Ventilator 07/28/19 12:00 100/38 07/28/19 12:00 100/38 07/28/19 12:00 98.9 107 25 100/38 100 Mechanical Ventilator 100 07/28/19 12:00 100 07/28/19 11:30 109 25 107/36 100 Mechanical Ventilator 100 07/28/19 11:15 110 07/28/19 11:00 97/32 07/28/19 11:00 97/32 07/28/19 11:00 97 25 97/32 100 Mechanical Ventilator 100 07/28/19 10:49 90 24 100 Mechanical Ventilator 100 75 24 90 07/28/19 10:30 102 25 97/39 100 Mechanical Ventilator 100 07/28/19 10:15 94/34 07/28/19 10:00 104 24 94/34 100 Mechanical Ventilator 100 07/28/19 10:00 96/32 07/28/19 10:00 96/32 07/28/19 09:45 93 23 94/36 100 Mechanical Ventilator 100 07/28/19 09:38 95/37 07/28/19 09:36 95/37 07/28/19 09:30 94 22 95/37 100 Mechanical Ventilator 100 07/28/19 09:15 93 24 95/34 100 Mechanical Ventilator 100 07/28/19 09:00 97 23 93/36 100 Mechanical Ventilator 100 07/28/19 08:58 95 26 100 Mechanical Ventilator 100 75 24 90 07/28/19 08:45 96 24 94/34 100 Mechanical Ventilator 100 07/28/19 08:01 101 29 100 Mechanical Ventilator 90 100 24 90 07/28/19 08:00 99.4 101 29 91/37 100 Mechanical Ventilator 100 07/28/19 08:00 100 07/28/19 08:00 Mechanical Ventilator 07/28/19 07:44 92 07/28/19 07:30 101 25 94/37 100 Mechanical Ventilator 100 07/28/19 07:00 92/33 07/28/19 07:00 92/33 07/28/19 07:00 102 26 90/35 100 Mechanical Ventilator 100 07/28/19 06:45 101 26 86/39 100 Mechanical Ventilator 100 07/28/19 06:30 101 20 07/28/19 06:30 101 26 95/39 100 Mechanical Ventilator 100 07/28/19 06:15 101 24 94/34 100 Mechanical Ventilator 100 07/28/19 06:00 101 25 94/34 100 Mechanical Ventilator 100 07/28/19 06:00 94/34 07/28/19 06:00 94/34 07/28/19 05:45 100 25 88/34 100 Mechanical Ventilator 100 07/28/19 05:30 98 25 81/35 100 Mechanical Ventilator 100 07/28/19 05:15 97 24 86/33 100 Mechanical Ventilator 100 07/28/19 05:00 86/07/28/19 05:00 86/07/28/19 05:00 98 24 88/32 100 Mechanical Ventilator 100 07/28/19 04:45 96 25 89/34 100 Mechanical Ventilator 100 07/28/19 04:40 96 25 100 07/28/19 04:30 95 25 94/34 100 Mechanical Ventilator 100 07/28/19 04:15 96 24 90/44 100 Mechanical Ventilator 100 07/28/19 04:00 98.7 93 24 94/36 100 Mechanical Ventilator 100 07/28/19 04:00 90/44 07/28/19 04:00 90/44 07/28/19 04:00 100 07/28/19 04:00 92 07/28/19 04:00 Mechanical Ventilator 07/28/19 03:45 93 25 99/36 100 Mechanical Ventilator 100 07/28/19 03:30 92 23 101/32 100 Mechanical Ventilator 100 07/28/19 03:15 92 24 106/39 Mechanical Ventilator 100 07/28/19 03:00 91 24 102/33 100 Mechanical Ventilator 100 07/28/19 03:00 106/39 07/28/19 03:00 106/36 07/28/19 02:45 92 25 104/37 100 Mechanical Ventilator 100 07/28/19 02:35 92 28 100 07/28/19 02:30 94 28 99/49 100 Mechanical Ventilator 100 07/28/19 02:15 96 25 117/36 99 Mechanical Ventilator 100 07/28/19 02:00 95 26 128/39 100 Mechanical Ventilator 100 07/28/19 02:00 117/36 07/28/19 02:00 117/36 07/28/19 01:45 94 23 127/40 100 Mechanical Ventilator 100 07/28/19 01:30 92 23 127/42 100 Mechanical Ventilator 100 07/28/19 01:28 94 22 100 07/28/19 01:15 91 22 127/42 100 Mechanical Ventilator 100 07/28/19 01:00 127/42 07/28/19 01:00 127/42 07/28/19 01:00 88 20 120/42 100 Mechanical Ventilator 100 07/28/19 00:45 87 19 126/38 100 Mechanical Ventilator 100 07/28/19 00:30 85 19 122/42 100 Mechanical Ventilator 100 07/28/19 00:15 84 23 112/46 100 Mechanical Ventilator 100 07/28/19 00:00 Mechanical Ventilator 07/28/19 00:00 83 25 124/35 100 Mechanical Ventilator 100 07/28/19 00:00 100 07/28/19 00:00 112/46 07/28/19 00:00 112/42 07/28/19 00:00 79 07/27/19 23:45 91.0 84 15 119/34 100 Mechanical Ventilator 100 07/27/19 23:30 81 19 124/38 100 Mechanical Ventilator 100 07/27/19 23:28 81 22 100 Mechanical Ventilator 100 82 15 100 07/27/19 23:15 80 22 121/36 100 Mechanical Ventilator 100 07/27/19 23:09 124/34 07/27/19 23:00 121/36 07/27/19 23:00 121/36 07/27/19 23:00 79 23 124/34 100 Mechanical Ventilator 100 07/27/19 22:45 77 19 123/30 100 Mechanical Ventilator 100 07/27/19 22:30 75 19 118/35 100 Mechanical Ventilator 100 07/27/19 22:15 75 19 118/35 100 Mechanical Ventilator 100 Intake and Output 07/27/19 07/28/19 19:00 07:00 Intake Total 33.75 ml 1419.842 ml Output Total 60 ml Balance 33.75 ml 1359.842 ml IV Total 33.75 ml 1419.842 ml Output Urine Total 60 ml # Voids 1 2D Echo: EF 65%, Grade I LVDD, RVSP 39 mmHg Laboratory Tests Test 07/28/19 03:10 07/28/19 05:00 07/28/19 10:16 07/28/19 12:05 Activated Partial Thromboplast Time > 150 SEC (23-33) *H > 150 SEC (23-33) *H Lactic Acid Level 5.60 mmol/L (0.4-2.0) H 5.80 mmol/L (0.4-2.0) H White Blood Count 25.4 K/UL (4.8-10.8) #*H Red Blood Count 3.30 M/UL (4.70-6.10) L Hemoglobin 9.4 G/DL (14.2-18.0) L Hematocrit 28.9 % (42.0-52.0) L Mean Corpuscular Volume 87 FL (80-99) Mean Corpuscular Hemoglobin 28.5 PG (27.0-31.0) Mean Corpuscular Hemoglobin Concent 32.6 G/DL (32.0-36.0) Red Cell Distribution Width 20.1 % (11.6-14.8) H Platelet Count 176 K/UL (150-450) Mean Platelet Volume 7.4 FL (6.5-10.1) Neutrophils (%) (Auto) % (45.0-75.0) Lymphocytes (%) (Auto) % (20.0-45.0) Monocytes (%) (Auto) % (1.0-10.0) Eosinophils (%) (Auto) % (0.0-3.0) Basophils (%) (Auto) % (0.0-2.0) Differential Total Cells Counted 100 Neutrophils % (Manual) 79 % (45-75) H Lymphocytes % (Manual) 4 % (20-45) L Monocytes % (Manual) 5 % (1-10) Eosinophils % (Manual) 3 % (0-3) Basophils % (Manual) 0 % (0-2) Band Neutrophils 9 % (0-8) H Nucleated Red Blood Cells 69 /100 WBC Platelet Estimate Adequate Platelet Morphology Normal Hypochromasia 2+ Anisocytosis 2+ Spherocytes 1+ Sodium Level 141 MMOL/L (136-145) Potassium Level 5.4 MMOL/L (3.5-5.1) H Chloride Level 109 MMOL/L (98-107) H Carbon Dioxide Level 21 MMOL/L (21-32) Anion Gap 12 mmol/L (5-15) Blood Urea Nitrogen 39 mg/dL (7-18) H Creatinine 2.1 MG/DL (0.55-1.30) H Estimat Glomerular Filtration Rate 36.5 mL/min (>60) Glucose Level 59 MG/DL (74-106) L Calcium Level 9.7 MG/DL (8.5-10.1) Phosphorus Level 2.6 MG/DL (2.5-4.9) Magnesium Level 1.8 MG/DL (1.8-2.4) Total Bilirubin 0.3 MG/DL (0.2-1.0) Aspartate Amino Transf (AST/SGOT) 202 U/L (15-37) H Alanine Aminotransferase (ALT/SGPT) 108 U/L (12-78) H Alkaline Phosphatase 173 U/L (46-116) H Troponin I 1.540 ng/mL (0.000-0.056) Total Protein 5.4 G/DL (6.4-8.2) L Albumin 1.2 G/DL (3.4-5.0) L Globulin 4.2 g/dL Albumin/Globulin Ratio 0.3 (1.0-2.7) L Arterial Blood pH 7.376 (7.350-7.450) Arterial Blood Partial Pressure CO2 33.9 mmHg (35.0-45.0) L Arterial Blood Partial Pressure O2 215.0 mmHg (75.0-100.0) H Arterial Blood HCO3 19.4 mmol/L (22.0-26.0) L Arterial Blood Oxygen Saturation 99.0 % (95-100) Arterial Blood Base Excess -5.2 (-2-2) L En Test Positive Random Vancomycin Level 15.5 ug/mL Test 07/28/19 13:25 07/28/19 18:38 Lactic Acid Level 3.70 mmol/L (0.66-2.22) H 3.80 mmol/L (0.4-2.0) H Microbiology Date/Time Source Procedure Growth Status 07/27/19 12:30 Sputum Induced Gram Stain - Final Resulted 07/27/19 12:30 Sputum Culture - Preliminary Gram Negative Bacillus 1 Resulted 07/27/19 13:00 Rectum Received Objective HEENT: Atraumatic and normocephalic. Anicteric. Pupils are equal, round, and reactive to light and accommodation. Extraocular muscles intact. NECK: JVP less than 5 cm. + trach tube in place. No carotid bruit. Carotid upstrokes 2+ bilaterally. CVS: Normal S1, S2. Regular rate and rhythm. No murmurs, gallops, or rubs. PMI is at fourth intercostal space in the left midclavicular line. LUNGS: Clear to auscultation bilaterally. ABDOMEN: Soft, nontender, and nondistended. G-tube in place. EXTREMITIES: No evidence of edema, clubbing, or cyanosis. Jim Nance MD Jul 28, 2019 22:01
[2019-07-29] VITALS (34 sets, daily range): BP systolic 48–126; BP diastolic 15–59
--- NOTE | 2019-07-29 | NUR ---
NURSE NOTES: Still no response to pain, no eye opening. Maintaining SBP >90mmHg with dopamine 20mcg/kg/min, levophed 30mcg/min,[place] 100mcg/min. Patient normothermic. No seizure episode.
[2019-07-29] MEDS: DOPamine 400mg/250ml 250 ML IV SCH ×3 (01:48→10:25)
--- NOTE | 2019-07-29 03:00 | NUR ---
NURSE NOTES: Noted with slight grimace to deep pain.
[2019-07-29] MEDS: Phenylephrine 50 MG in D5W 245 ML IV PRN ×2 (03:22→08:35)
--- NOTE | 2019-07-29 05:00 | NUR ---
NURSE NOTES: Bed bath, oral care, change of linens done.
[2019-07-29] MEDS: Zoysn 3.37gm in NS 100ML IVPB SCH (05:35)
[2019-07-29] MEDS: Hydrocortisone 100mg Inj IV SCH (05:35)
[2019-07-29] MEDS: Norepinephrine Bitartrate 16 MG in D5W 500ml 484 ML IV SCH (05:57)
--- NOTE | 2019-07-29 06:00 | NUR ---
NURSE NOTES: Patient noted with brief episodes of tachycardia, up to 110. Dopamine decreased to 16mcg/kg/min, neosynephrine increased to 200mcg/min
--- NOTE | 2019-07-29 06:53 | NUR ---
NURSE NOTES: SBP went down to 70s. Dopamine increased back to 20 mcg/kg/min, Kadeem increased to 240mcg/min. Levophed remains at 30mcg/min
--- NOTE | 2019-07-29 07:30 | NUR ---
HAND-OFF: Flaking Roll Operator and 3 RNs attempted to draw blood sample for morning labs, unable to draw. Report given to HARPAL Valle. receiving RN made aware of pending labs.
[2019-07-29] MEDS: Albuterol/Ipratropium 3ml neb HHN SCH (07:37)
--- NOTE | 2019-07-29 08:00 | NUR ---
NURSE NOTES: Lori Evans N.P. updated on patient condition and assessed at the bedside. no verbal orders given at this time.
--- NOTE | 2019-07-29 08:08 | Pulmonolgy Critical Care Note ---
Critical Care - Asmt/Plan Assessment/Plan: ASSESSMENT Severe sepsis probably due to PNA Septic shock Pulmonary edema ?ARDS multiorgan failure Pneumonia, possibly aspiration ( given seizure in ED) UTI Acute on chronic ventilator dependent respiratory failure with tracheostomy status Elevated troponin Anemia ASIA vs CRI abnormal LFT, likely shock liver seizure episode in ER PLAN OF CARE ICU pressors- titrated to keep mean arterial blood pressure above 65 currently on 3 diff max doses of pressors, cardio on board vent support,, trach care pulmonary toilet fup CXR stat ABG and call results, will titrate settings as needed ABX per ID, fup with CX venous duplex BLE and SCD if negative Echo with pEF serial troponin off heparin drip 2 to bleed from trach stress dose steroid monitor H&H with goal to keep hemoglobin above 7, GI prophylaxis renal US with mild davion hydro, monitor renal parameters, lites ,correct lites as needed ,avoid nephrotoxic abd US noted, trend LFT, likely shock liver CN from ICU spole with pt son, who can not come and visit his father but wants evth to be done seizure precautions EEG case discussed and evaluated by supervising physician Critical Care - Objective Last 24 Hour Vital Signs Date Time Temp Pulse Resp B/P (MAP) Pulse Ox O2 Delivery O2 Flow Rate FiO2 07/29/19 07:29 96 29 100 Mechanical Ventilator 80 95 26 80 07/29/19 07:15 96 27 78/26 100 Mechanical Ventilator 90 07/29/19 07:00 82/29 07/29/19 07:00 82/29 07/29/19 07:00 96 26 82/29 100 Mechanical Ventilator 90 07/29/19 06:48 97 26 100/57 100 Mechanical Ventilator 90 07/29/19 06:45 97 27 71/51 100 Mechanical Ventilator 90 07/29/19 06:30 89 20 07/29/19 06:30 97 27 89/48 100 Mechanical Ventilator 90 07/29/19 06:15 96 27 93/59 100 Mechanical Ventilator 90 07/29/19 06:00 101 26 95/44 100 Mechanical Ventilator 90 07/29/19 06:00 95/44 07/29/19 06:00 95/44 07/29/19 05:57 90/44 07/29/19 05:56 90/44 07/29/19 05:45 88 27 90/44 100 Mechanical Ventilator 90 07/29/19 05:30 87 27 96/15 100 Mechanical Ventilator 90 07/29/19 05:15 102 24 100 07/29/19 05:15 110 26 106/59 100 Mechanical Ventilator 90 07/29/19 05:00 106/59 07/29/19 05:00 106/59 07/29/19 05:00 85 26 111/51 100 Mechanical Ventilator 90 07/29/19 04:30 92 24 104/31 100 Mechanical Ventilator 90 07/29/19 04:00 98.4 99 23 122/40 100 Mechanical Ventilator 90 07/29/19 04:00 Mechanical Ventilator 07/29/19 04:00 92/45 07/29/19 04:00 92/45 07/29/19 04:00 90 07/29/19 04:00 94 07/29/19 03:30 94 27 126/57 100 Mechanical Ventilator 90 07/29/19 03:23 78 23 100 07/29/19 03:22 95 119/46 07/29/19 03:00 119/46 07/29/19 03:00 119/46 07/29/19 03:00 94 29 123/57 100 Mechanical Ventilator 07/29/19 02:30 94 27 123/51 100 Mechanical Ventilator 07/29/19 02:00 121/59 07/29/19 02:00 121/59 07/29/19 02:00 93 26 124/40 100 Mechanical Ventilator 07/29/19 01:48 113/43 07/29/19 01:30 93 26 121/36 100 Mechanical Ventilator 07/29/19 01:00 124/51 07/29/19 01:00 124/51 07/29/19 01:00 94 25 122/35 100 Mechanical Ventilator 90 07/29/19 00:30 94 25 108/49 100 Mechanical Ventilator 90 07/29/19 00:00 104/46 07/29/19 00:00 104/46 07/29/19 00:00 98.0 78 24 90/38 100 Mechanical Ventilator 90 07/29/19 00:00 90 07/29/19 00:00 Mechanical Ventilator 07/29/19 00:00 92 07/28/19 23:30 81 25 110/51 100 Mechanical Ventilator 90 07/28/19 23:00 114/40 07/28/19 23:00 114/40 07/28/19 23:00 80 24 107/66 100 Mechanical Ventilator 90 07/28/19 22:56 79 24 100 Mechanical Ventilator 100 74 24 90 07/28/19 22:30 105 25 127/48 100 Mechanical Ventilator 90 07/28/19 22:00 115/59 07/28/19 22:00 115/59 07/28/19 22:00 106 26 111/44 100 Mechanical Ventilator 90 07/28/19 21:45 93 24 115/47 100 Mechanical Ventilator 90 07/28/19 21:44 112/45 07/28/19 21:30 88 25 112/45 100 Mechanical Ventilator 90 07/28/19 21:23 110/52 07/28/19 21:15 92 26 110/52 100 Mechanical Ventilator 90 07/28/19 21:00 86 25 106/60 100 Mechanical Ventilator 90 07/28/19 21:00 106/60 07/28/19 21:00 106/60 07/28/19 20:45 92 27 108/56 100 Mechanical Ventilator 90 07/28/19 20:30 82 25 108/43 100 Mechanical Ventilator 90 07/28/19 20:15 90 24 98/46 100 Mechanical Ventilator 90 07/28/19 20:01 99 89/51 07/28/19 20:00 98.2 99 23 96/37 100 Mechanical Ventilator 90 07/28/19 20:00 101 07/28/19 20:00 98/46 07/28/19 20:00 98/46 07/28/19 20:00 Mechanical Ventilator 07/28/19 20:00 90 07/28/19 19:45 101 23 89/51 100 Mechanical Ventilator 90 07/28/19 19:30 107 22 92/50 100 Mechanical Ventilator 90 07/28/19 19:00 99/56 07/28/19 19:00 99/56 07/28/19 19:00 93 23 99/56 100 Mechanical Ventilator 100 07/28/19 18:55 99 25 90 07/28/19 18:22 90/46 07/28/19 18:00 101 22 75/33 100 Mechanical Ventilator 100 07/28/19 18:00 86/45 07/28/19 18:00 86/45 07/28/19 17:12 92 26 100 Mechanical Ventilator 100 75 24 90 07/28/19 17:00 79 20 99/46 100 Mechanical Ventilator 100 07/28/19 17:00 98/42 07/28/19 17:00 98/42 07/28/19 16:00 98.8 93 20 95/41 100 Mechanical Ventilator 100 07/28/19 16:00 100 07/28/19 16:00 104/43 07/28/19 16:00 104/43 07/28/19 16:00 Mechanical Ventilator 07/28/19 15:24 76 24 100 Mechanical Ventilator 100 75 24 90 07/28/19 15:24 91 07/28/19 15:00 77 25 76/45 Mechanical Ventilator 100 07/28/19 15:00 85/36 07/28/19 15:00 85/36 07/28/19 14:18 79/32 07/28/19 14:00 79/32 07/28/19 14:00 79/32 07/28/19 14:00 77 24 86/38 Mechanical Ventilator 100 07/28/19 13:21 90 28 100 07/28/19 13:05 82/36 07/28/19 13:00 82/36 07/28/19 13:00 82/36 07/28/19 13:00 86 24 82/36 100 Mechanical Ventilator 100 07/28/19 12:00 Mechanical Ventilator 07/28/19 12:00 100/38 07/28/19 12:00 100/38 07/28/19 12:00 98.9 107 25 100/38 100 Mechanical Ventilator 100 07/28/19 12:00 100 07/28/19 11:30 109 25 107/36 100 Mechanical Ventilator 100 07/28/19 11:15 110 07/28/19 11:00 97/32 07/28/19 11:00 97/32 07/28/19 11:00 97 25 97/32 100 Mechanical Ventilator 100 07/28/19 10:49 90 24 100 Mechanical Ventilator 100 75 24 90 07/28/19 10:30 102 25 97/39 100 Mechanical Ventilator 100 07/28/19 10:15 94/34 07/28/19 10:00 104 24 94/34 100 Mechanical Ventilator 100 07/28/19 10:00 96/32 07/28/19 10:00 96/32 07/28/19 09:45 93 23 94/36 100 Mechanical Ventilator 100 07/28/19 09:38 95/37 07/28/19 09:36 95/37 07/28/19 09:30 94 22 95/37 100 Mechanical Ventilator 100 07/28/19 09:15 93 24 95/34 100 Mechanical Ventilator 100 07/28/19 09:00 97 23 93/36 100 Mechanical Ventilator 100 07/28/19 08:58 95 26 100 Mechanical Ventilator 100 75 24 90 07/28/19 08:45 96 24 94/34 100 Mechanical Ventilator 100 Objective: Status: on Vent AC 500-14-80% PEEP5 Condition: grave HEENT: atraumatic, Neck: trach - Shiley #7.5, small amount of thick secretions Lungs: rhonchi Heart: HR/BP unstable Abdomen: soft, feeding tube - G tube Extremities: no C/C/E Micro: Microbiology Date/Time Source Procedure Growth Status 07/27/19 12:40 Blood Blood Culture - Preliminary NO GROWTH AFTER 24 HOURS Resulted 07/27/19 12:35 Blood Blood Culture - Preliminary NO GROWTH AFTER 24 HOURS Resulted 07/27/19 13:00 Nasal Nares MRSA Culture - Final NO METHICILLIN RESISTANT STAPH AUREUS... Complete 07/27/19 12:30 Sputum Induced Gram Stain - Final Resulted 07/27/19 12:30 Sputum Culture - Preliminary Gram Negative Bacillus 1 Resulted 07/27/19 12:30 Urine,Clean Catch Urine Culture - Preliminary Gram Negative Lucius Resulted 07/27/19 13:00 Rectum Received Critical Care - Subjective ROS Limited/Unobtainable: Yes Interval Events: on 3 different pressors, maxed doses on high FiO2 ABG and labs pending this am Condition: critical, grave IV Access: central EKG Rhythm: Sinus Rhythm FI02: 80 Vent Support Breath Rate: 14 Vent Support Mode: AC Vent Tidal Volume: 500 Sputum Amount: Small PEEP: 5.0 PIP: 24 Fluids: D5/1/2 NS at 75 Drips: Levophed 30 mcg/min; Dopamine 20 mcg/kg/min; neosynephrine [id number] mcg/ min I&O: Intake and Output 07/28/19 07/29/19 19:00 07:00 Intake Total 2271.278 ml 2889.253 ml Output Total 60 ml 60 ml Balance 2211.278 ml 2829.253 ml Intake Free Water 60 ml IV Total 2211.278 ml 2889.253 ml Output Urine Total 60 ml 60 ml # Bowel Movements 1 CXR: CXR 07/28 1. Pulmonary edema with small left pleural effusion, not significantly changed from the prior day's chest x-ray. 2. Subsegmental atelectasis versus infiltrate in the left lung base. Lori Evans NP Jul 29, 2019 08:08
[2019-07-29] MEDS: Doxycycline Monohydrate 100mg GT SCH (08:33)
[2019-07-29] MEDS: Pantoprazole Inj IVP SCH (08:33)
--- NOTE | 2019-07-29 09:20 | NUR ---
RD ASSESSMENT & RECOMMENDATIONS SEE CARE ACTIVITY FOR COMPLETE ASSESSMENT DAILY ESTIMATED NEEDS: Needs based on Critical care, sepsis 74kg abw 22-30 kcals/kg 9567-2392 total kcals 1.2-2 g protein/kg 89-148 g total protein Fluid per MD NUTRITION DIAGNOSIS: Swallowing difficulty r/t resp status as evidenced by pt w/ trach and PEG, currently w/ septic shock, hypotensive, ICU status. CURRENT TF:NPO ENTERAL NUTRITION RECOMMENDATIONS: When medically appropriate rec Vital AF 1.2 @60ml/hr x24 hrs to provide 1440ml, 1728 kcal, 108g pro, 1168ml free H2O - W/ hemodynamic stability rec to initiate feeds of Vital 1.2, start @20ml/hr for 6hrs. Advance as tolerated 10ml/hr q4-6 hrsto goal . - Flush per MD, HOB over 30 degrees With continued hemodynamic instability, as appropriate rec trophic feeds of 5ml/hr to maintain gut integrity. ADDITIONAL RECOMMENDATIONS: 1) Monitor for hemodynamic stability to initiate feeds 2) Tf recs as above when appropriate 3) F/up w/ WC eval, NPO at this time
--- NOTE | 2019-07-29 10:22 | Nephrology Progress Note ---
Assessment/Plan Problem List: (1) Septic shock (2) ASIA (acute kidney injury) (3) Chronic respiratory failure (4) Pneumonia Assessment Acute renal failure- ? Underlying CKD Septic shock / Pneumonia Severe anemia- transfused 2 units PRBCs already acute on chronic respiratory failure- on Vent Elevated Troponin I History of DVT and PE. BPH Sacral decubitus ulcer, presented on admission. Brain mass ( pituitary) Plan on 3 pressors maxed yet hypotensive preterminal favor comfort care discussed with charge nurse 2D echo- noted ISIDRO kidney 1. Mild bilateral hydronephrosis. 2. 3.6 cm simple-appearing cortical cyst in the right upper renal pole. monitor renal parameters pending labs today TFT Anemia bernstein fluid challenge per orders Subjective ROS Limited/Unobtainable: Yes Objective Objective Last 24 Hour Vital Signs Date Time Temp Pulse Resp B/P (MAP) Pulse Ox O2 Delivery O2 Flow Rate FiO2 07/29/19 09:12 81 29 80 07/29/19 08:45 84 27 71/43 96 Mechanical Ventilator 80 07/29/19 08:35 80 88/37 07/29/19 08:30 83 24 82/53 99 Mechanical Ventilator 90 07/29/19 08:15 88 25 83/45 99 Mechanical Ventilator 90 07/29/19 08:00 97.7 96 19 88/47 99 Mechanical Ventilator 90 07/29/19 08:00 80 07/29/19 08:00 96 07/29/19 07:45 92 28 63/43 100 Mechanical Ventilator 90 07/29/19 07:30 96 27 77/40 100 Mechanical Ventilator 90 07/29/19 07:29 96 29 100 Mechanical Ventilator 80 95 26 80 07/29/19 07:15 96 27 78/26 100 Mechanical Ventilator 90 07/29/19 07:00 82/29 07/29/19 07:00 82/29 07/29/19 07:00 96 26 82/29 100 Mechanical Ventilator 90 07/29/19 06:48 97 26 100/57 100 Mechanical Ventilator 90 07/29/19 06:45 97 27 71/51 100 Mechanical Ventilator 90 07/29/19 06:30 89 20 07/29/19 06:30 97 27 89/48 100 Mechanical Ventilator 90 07/29/19 06:15 96 27 93/59 100 Mechanical Ventilator 90 07/29/19 06:00 101 26 95/44 100 Mechanical Ventilator 90 07/29/19 06:00 95/44 07/29/19 06:00 95/44 07/29/19 05:57 90/44 07/29/19 05:56 90/44 07/29/19 05:45 88 27 90/44 100 Mechanical Ventilator 90 07/29/19 05:30 87 27 96/15 100 Mechanical Ventilator 90 07/29/19 05:15 102 24 100 07/29/19 05:15 110 26 106/59 100 Mechanical Ventilator 90 07/29/19 05:00 106/59 07/29/19 05:00 106/59 07/29/19 05:00 85 26 111/51 100 Mechanical Ventilator 90 07/29/19 04:30 92 24 104/31 100 Mechanical Ventilator 07/29/19 04:00 98.4 99 23 122/40 100 Mechanical Ventilator 07/29/19 04:00 Mechanical Ventilator 07/29/19 04:00 92/45 07/29/19 04:00 92/45 07/29/19 04:00 90 07/29/19 04:00 94 07/29/19 03:30 94 27 126/57 100 Mechanical Ventilator 07/29/19 03:23 78 23 100 07/29/19 03:22 95 119/46 07/29/19 03:00 119/46 07/29/19 03:00 119/46 07/29/19 03:00 94 29 123/57 100 Mechanical Ventilator 07/29/19 02:30 94 27 123/51 100 Mechanical Ventilator 07/29/19 02:00 121/59 07/29/19 02:00 121/59 07/29/19 02:00 93 26 124/40 100 Mechanical Ventilator 07/29/19 01:48 113/43 07/29/19 01:30 93 26 121/36 100 Mechanical Ventilator 07/29/19 01:00 124/51 07/29/19 01:00 124/51 07/29/19 01:00 94 25 122/35 100 Mechanical Ventilator 90 07/29/19 00:30 94 25 108/49 100 Mechanical Ventilator 90 07/29/19 00:00 104/46 07/29/19 00:00 104/46 07/29/19 00:00 98.0 78 24 90/38 100 Mechanical Ventilator 90 2/16/20 00:00 90 07/29/19 00:00 Mechanical Ventilator 07/29/19 00:00 92 07/28/19 23:30 81 25 110/51 100 Mechanical Ventilator 90 07/28/19 23:00 114/40 07/28/19 23:00 114/40 07/28/19 23:00 80 24 107/66 100 Mechanical Ventilator 90 07/28/19 22:56 79 24 100 Mechanical Ventilator 100 74 24 90 07/28/19 22:30 105 25 127/48 100 Mechanical Ventilator 90 07/28/19 22:00 115/59 07/28/19 22:00 115/59 07/28/19 22:00 106 26 111/44 100 Mechanical Ventilator 90 07/28/19 21:45 93 24 115/47 100 Mechanical Ventilator 90 07/28/19 21:44 112/45 07/28/19 21:30 88 25 112/45 100 Mechanical Ventilator 90 07/28/19 21:23 110/52 07/28/19 21:15 92 26 110/52 100 Mechanical Ventilator 90 07/28/19 21:00 86 25 106/60 100 Mechanical Ventilator 90 07/28/19 21:00 106/60 07/28/19 21:00 106/60 07/28/19 20:45 92 27 108/56 100 Mechanical Ventilator 90 07/28/19 20:30 82 25 108/43 100 Mechanical Ventilator 90 07/28/19 20:15 90 24 98/46 100 Mechanical Ventilator 90 07/28/19 20:01 99 89/51 07/28/19 20:00 98.2 99 23 96/37 100 Mechanical Ventilator 90 07/28/19 20:00 101 07/28/19 20:00 98/46 07/28/19 20:00 98/46 07/28/19 20:00 Mechanical Ventilator 07/28/19 20:00 90 07/28/19 19:45 101 23 89/51 100 Mechanical Ventilator 90 07/28/19 19:30 107 22 92/50 100 Mechanical Ventilator 90 07/28/19 19:00 99/56 07/28/19 19:00 99/56 07/28/19 19:00 93 23 99/56 100 Mechanical Ventilator 100 07/28/19 18:55 99 25 90 07/28/19 18:22 90/46 07/28/19 18:00 101 22 75/33 100 Mechanical Ventilator 100 07/28/19 18:00 86/45 07/28/19 18:00 86/45 07/28/19 17:12 92 26 100 Mechanical Ventilator 100 75 24 90 07/28/19 17:00 79 20 99/46 100 Mechanical Ventilator 100 07/28/19 17:00 98/42 07/28/19 17:00 98/42 07/28/19 16:00 98.8 93 20 95/41 100 Mechanical Ventilator 100 07/28/19 16:00 100 07/28/19 16:00 104/43 07/28/19 16:00 104/43 07/28/19 16:00 Mechanical Ventilator 07/28/19 15:24 76 24 100 Mechanical Ventilator 100 75 24 90 07/28/19 15:24 91 07/28/19 15:00 77 25 76/45 Mechanical Ventilator 100 07/28/19 15:00 85/36 07/28/19 15:00 85/36 07/28/19 14:18 79/32 07/28/19 14:00 79/32 07/28/19 14:00 79/32 07/28/19 14:00 77 24 86/38 Mechanical Ventilator 100 07/28/19 13:21 90 28 100 07/28/19 13:05 82/36 07/28/19 13:00 82/36 07/28/19 13:00 82/36 07/28/19 13:00 86 24 82/36 100 Mechanical Ventilator 100 07/28/19 12:00 Mechanical Ventilator 07/28/19 12:00 100/38 07/28/19 12:00 100/38 07/28/19 12:00 98.9 107 25 100/38 100 Mechanical Ventilator 100 07/28/19 12:00 100 07/28/19 11:30 109 25 107/36 100 Mechanical Ventilator 100 07/28/19 11:15 110 07/28/19 11:00 97/32 07/28/19 11:00 97/32 07/28/19 11:00 97 25 97/32 100 Mechanical Ventilator 100 07/28/19 10:49 90 24 100 Mechanical Ventilator 100 75 24 90 07/28/19 10:30 102 25 97/39 100 Mechanical Ventilator 100 Intake and Output 07/28/19 07/29/19 19:00 07:00 Intake Total 2271.278 ml 2889.253 ml Output Total 60 ml 60 ml Balance 2211.278 ml 2829.253 ml Intake Free Water 60 ml IV Total 2211.278 ml 2889.253 ml Output Urine Total 60 ml 60 ml # Bowel Movements 1 Laboratory Tests 07/28/19 12:05: Activated Partial Thromboplast Time > 150*H, Lactic Acid Level 5.80H, Random Vancomycin Level 15.5 07/28/19 13:25: Lactic Acid Level 3.70H 07/28/19 18:38: Lactic Acid Level 3.80H 07/28/19 22:10: Lactic Acid Level 6.00H Height (Feet): 5 Height (Inches): 8.00 Weight (Pounds): 200 General Appearance: no apparent distress EENT: other - vented Cardiovascular: tachycardia Respiratory/Chest: decreased breath sounds Abdomen: distended Lucas Cruz MD Jul 29, 2019 10:22
[2019-07-29] MEDS ORDERED: Sterile Water Irrig 1000ml IRRIG ONE (10:28)
[2019-07-29] MEDS ORDERED: NS 275ml ONE (10:28)
[2019-07-29] MEDS ORDERED: Tubing IV Secondary IV ONE (10:28)
--- NOTE | 2019-07-29 10:45 | NUR ---
NURSE NOTES: patient heart rate dropped to 0 with no pulse present when palpated, code blue initiated, patient could not be relieved, at 1038, patient pronounced by dr. Doll at the bedside, see code blue sheet in chart.
--- NOTE | 2019-07-29 11:12 | Emergency Room Report ---
Physical Exam Code blue called. Patient admitted with severe sepsis. On maximal pressors. Deteriorating BP. Unresponsive since yesterday. H/O hip fx and code during prior hospitalization. Minimally responsive on admission. Last 24 Hour Vital Signs Date Time Temp Pulse Resp B/P (MAP) Pulse Ox O2 Delivery O2 Flow Rate FiO2 07/29/19 10:25 48/28 07/29/19 10:15 74 27 57/27 96 Mechanical Ventilator 80 07/29/19 10:00 75 27 60/26 96 Mechanical Ventilator 80 07/29/19 10:00 60/32 07/29/19 09:45 78 27 61/32 96 Mechanical Ventilator 80 07/29/19 09:30 80 27 68/29 96 Mechanical Ventilator 80 07/29/19 09:15 81 27 65/34 96 Mechanical Ventilator 80 07/29/19 09:12 81 29 80 07/29/19 09:00 80 27 71/43 96 Mechanical Ventilator 80 07/29/19 09:00 71/43 07/29/19 08:45 84 27 71/43 96 Mechanical Ventilator 80 07/29/19 08:35 80 88/37 07/29/19 08:30 83 24 82/53 99 Mechanical Ventilator 90 07/29/19 08:15 88 25 83/45 99 Mechanical Ventilator 90 07/29/19 08:00 97.7 96 19 88/47 99 Mechanical Ventilator 90 07/29/19 08:00 Mechanical Ventilator 07/29/19 08:00 83/47 07/29/19 08:00 80 07/29/19 08:00 96 07/29/19 07:45 92 28 63/43 100 Mechanical Ventilator 90 07/29/19 07:30 96 27 77/40 100 Mechanical Ventilator 90 07/29/19 07:29 96 29 100 Mechanical Ventilator 80 95 26 80 07/29/19 07:15 96 27 78/26 100 Mechanical Ventilator 90 07/29/19 07:00 82/29 07/29/19 07:00 82/29 07/29/19 07:00 96 26 82/29 100 Mechanical Ventilator 90 07/29/19 06:48 97 26 100/57 100 Mechanical Ventilator 90 07/29/19 06:45 97 27 71/51 100 Mechanical Ventilator 90 07/29/19 06:30 89 20 07/29/19 06:30 97 27 89/48 100 Mechanical Ventilator 90 07/29/19 06:15 96 27 93/59 100 Mechanical Ventilator 90 07/29/19 06:00 101 26 95/44 100 Mechanical Ventilator 90 07/29/19 06:00 95/44 07/29/19 06:00 95/44 07/29/19 05:57 90/44 07/29/19 05:56 90/44 07/29/19 05:45 88 27 90/44 100 Mechanical Ventilator 90 07/29/19 05:30 87 27 96/15 100 Mechanical Ventilator 90 07/29/19 05:15 102 24 100 07/29/19 05:15 110 26 106/59 100 Mechanical Ventilator 90 07/29/19 05:00 106/59 07/29/19 05:00 106/59 07/29/19 05:00 85 26 111/51 100 Mechanical Ventilator 90 07/29/19 04:30 92 24 104/31 100 Mechanical Ventilator 90 07/29/19 04:00 98.4 99 23 122/40 100 Mechanical Ventilator 90 07/29/19 04:00 Mechanical Ventilator 07/29/19 04:00 92/45 07/29/19 04:00 92/45 07/29/19 04:00 90 07/29/19 04:00 94 07/29/19 03:30 94 27 126/57 100 Mechanical Ventilator 90 07/29/19 03:23 78 23 100 07/29/19 03:22 95 119/46 07/29/19 03:00 119/46 07/29/19 03:00 119/46 07/29/19 03:00 94 29 123/57 100 Mechanical Ventilator 90 07/29/19 02:30 94 27 123/51 100 Mechanical Ventilator 90 Sp02 EP Interpretation: reviewed, abnormal - as interpreted by me General Appearance: other - unresponsive, Chronically Ill Head: normocephalic Eyes: bilateral eye abnormal EOM - no movement, bilateral eye other - pupils unresponsive ENT: moist mucus membranes Neck: tracheotomy Respiratory: rhonchi - bilat Cardiovascular #1: other - pulses only with CPR, edema - anasarca Cardiovascular #2: 1+ femoral (R) - with CPR only Gastrointestinal: non-distended, decreased bowel sounds Musculoskeletal: other - flaccid Neurologic: other - unresponsive Psychiatric: other - unresponsive Skin: mottled CPR/Code Blue CPR/Code Blue Narrative Code called at 10:33 CPR performed under my supervision. Pulses with CPR. Epi given prior to my arrival. Asystole on monitor. Epi repeat X1. Assessed to be futile care as patient not able to return to any state of viability. Code ended at 10:38 and patient pronounced. Medical Decision Making Diagnostic Impression: Primary Impression: Cardiopulmonary arrest ER Course Asystolic code. Patient on maximal pressors with severe sepsis. See Code notes. Patient demonstrates futile care and cardiopulmonary unresponsiveness. Resuscitation ended and patient pronounced 10:38 Rhythm Strip Diag. Results EP Interpretation: yes Rhythm: other - asystole Status: worsened Disposition: Condition: Referrals: NON PHYSICIAN (PCP) Leonard Doll MD Jul 29, 2019 11:12
--- NOTE | 2019-07-29 11:30 | NUR ---
NURSE NOTES: Patient at 1036. Patient's son was informed that his father . No mortuary was given at that time. Son was interested in certificate however no arrangements and will not be coming [place] [facility] [place]. [employer] was called, spoke to Jumana at 1052 and case#[id number]. This is not a [employer] case. Service Operator's office was called, spoke to Jessica at 1109, body can be officially released. Patient does not have any belongings. Patient will be released to the [facility] after post mortem care. Dr. Witt was called and informed.
--- NOTE | 2019-07-31 10:28 | Discharge Summary ---
Discharge Summary Discharge Summary _ DATE OF ADMISSION: 07/27/2019 DATE OF DISCHARGE: 07/29/2019 REASON FOR ADMISSION: 84 years old male with past medical history of chronic respiratory failure, ventilator dependent, tracheostomy status, brain mass, hypertension, dementia, dysphagia, feeding by G-tube, DVT and PE, hypertension, BPH, chronic kidney disease, was sent from the facility due to altered mental status and weakness. Shortly after initial evaluation in emergency department, patient was noted to be severely hypotensive. No fever or chills were reported from the assisted. Central line was inserted to start pressors. Laboratory work-up initially revealed no leukocytosis ,WBC 10, hemoglobin 7.7 ,hematocrit 24.7 platelet count 161. BUN 36, creatinine 1.9. Glucose 119. Lactic acid 5.8. AST 141, ALT 93. Troponin 0.963. Total CK 110. EKG revealed sinus rhythm , no acute ischemic changes. Pro BNP 732. Albumin 1.1. Chest x-ray demonstrated moderate pulmonary edema and left pleural effusion. Repeated chest x-ray after insertion of central line revealed a right central line in good position , no pneumothorax. CT of the head demonstrated no acute intracranial hemorrhage. Bifrontal and left parietal/occipital chronic encephalomalacia. Chronic small vessel ischemic changes. Nonspecific sellar 2.5 x 1.5 cm prominence. Septic work-up initiated. Patient started on pressors and admitted to ICU for further management. CONSULTANTS: marble installer Dr. Nance pulmonary Dr. Sosa ID specialist Dr. Rodriguez couture dressmaker Dr. [facility] COURSE: Patient admitted to ICU. Ventilator support and tracheostomy care provided. Pulmonary toilet with bronchodilator provided. Patient was followed up with ABG and chest x-ray. Settings titrated as needed. Patient started on broad-spectrum antibiotics. ID specialist followed. Patient started on heparin drip. Troponin trending up the next day 1.54. Echocardiogram revealed preserved ejection fraction of 60 to 65% with no evidence of pericardial effusion , no evidence of wall motion abnormalities to the extent visualized. Right ventricular systolic pressure of 39. Blood pressure did not respond to Levophed , and patient started on dopamine . Hemodynamic status was closely monitored to keep mean arterial blood pressure above 65. Patient remained hemodynamically unstable. Third pressor- [id number] adde by marble installer. Per cardiology, elevation of troponin was due to demand ischemia with NSTEMI type II in presence of sepsis and renal failure. The next day WBC up to 25.4 . No fevers , however patient was noted to be hypothermic and required warming measures. Antibiotic regimen further continued as per ID specialist recommendation. Sputum culture revealed Enterobacter and Acinetobacter. Urine culture revealed Acinetobacter growth. Blood culture were negative. Seizure precaution maintained. No further seizure activity. EEG was ordered. Venous duplex bilateral lower extremity revealed no evidence of DVT. Patient noted to have some bleeding from tracheostomy. Heparin drip was stopped. Renal parameters and electrolytes were closely monitored. Renal ultrasound revealed mild bilateral hydronephrosis. Abdominal ultrasound demonstrated bilateral pleural effusion and mild left hydronephrosis. ABG was not done as ordered on 07/29, apparently RT was unable to obtain arterial stick. Patient remained on high ventilator settings with FiO2 between 80 and 100%. Also unable to obtain labs on 07/28 . LFT and creatinine worsened . Patient received 1 unit of packed red blood cells , hemoglobin up to 9.4 hematocrit 28.9. Despite 3 different pressors Levophed ,dopamine ,and Kadeem-Synephrine , all on maximum dosing, blood pressure deteriorated. CODE BLUE was called at 10:33 am and conducted as per ACLS protocol . Unfortunately all attempts appeared to be futile . Patient was pronounced at 10: 38 07/29 . Cause of : cardiopulmonary arrest FINAL DIAGNOSES: Status post cardiopulmonary arrest Septic shock Severe sepsis probably due to pneumonia Pulmonary edema Questionable ARDS NSTEMI type II in the presence of sepsis and renal failure Acinetobacter, Enterobacter pneumonia , possibly aspiration ( given seizure in ED) Acinetobacter UTI Multiorgan failure Acute kidney injury , possibly on underlying chronic kidney disease History of DVT and PE Acute respiratory failure on chronic ventilator dependent respiratory failure, tracheostomy status Abnormal LFT, likely shock liver Severe anemia , status post blood transfusion Dysphagia , feeding by G-tube Toxic metabolic encephalopathy Brain mass pituitary BPH Seizure episode in ER Severe protein calorie malnutrition Lroi Evans NP Jul 31, 2019 10:28
== END 2019-07-29 13:50 | disposition expired | DRG 871 ==
LOC: EDBD 12:00 → EDBEDREQ 12:19 → EMR 12:30 → ICU 13:21 → EDBEDREQ 13:54 → EDBEDREQSVC 13:54 → EDBEDREQ 17:36
PROC: 5A1945Z Respiratory Ventilation, 24-96 Consecutive Hours (ICD-10-PCS; principal; 2019-07-27)
PROC: 05HM33Z Insertion of Infusion Device into Right Internal Jugular Vein, Percutaneous Approach (ICD-10-PCS; 2019-07-27)
PROC: 30233N1 Transfusion of Nonautologous Red Blood Cells into Peripheral Vein, Percutaneous Approach (ICD-10-PCS; 2019-07-27)
PROC: 5A12012 Performance of Cardiac Output, Single, Manual (ICD-10-PCS; 2019-07-29)
DX: A41.9 Sepsis, unspecified organism (principal); R65.21 Severe sepsis with septic shock; I21.A1 Myocardial infarction type 2; E43 Unspecified severe protein-calorie malnutrition; G92 Toxic encephalopathy; J15.6 Pneumonia due to other Gram-negative bacteria; K72.00 Acute and subacute hepatic failure without coma; J96.20 Acute and chronic respiratory failure, unspecified whether with hypoxia or hypercapnia; N39.0 Urinary tract infection, site not specified; N17.9 Acute kidney failure, unspecified; Z99.11 Dependence on respirator [ventilator] status; Z43.1 Encounter for attention to gastrostomy; N13.30 Unspecified hydronephrosis; Z86.718 Personal history of other venous thrombosis and embolism; Z86.711 Personal history of pulmonary embolism; Z96.641 Presence of right artificial hip joint; L89.896 Pressure-induced deep tissue damage of other site; I12.9 Hypertensive chronic kidney disease with stage 1 through stage 4 chronic kidney disease, or unspecified chronic kidney disease; N18.9 Chronic kidney disease, unspecified; N40.0 Benign prostatic hyperplasia without lower urinary tract symptoms; L89.159 Pressure ulcer of sacral region, unspecified stage; G93.89 Other specified disorders of brain; R13.10 Dysphagia, unspecified; Z43.0 Encounter for attention to tracheostomy; E23.6 Other disorders of pituitary gland; D64.9 Anemia, unspecified; R56.9 Unspecified convulsions; F03.90 Unspecified dementia, unspecified severity, without behavioral disturbance, psychotic disturbance, mood disturbance, and anxiety
CPT/HCPCS: 36415; 36600; 70450; 71045; 76700; 76770; 80053; 80202; 81003; 82550; 82553; 82803; 82962; 83605; 83735; 83880; 84100; 84484; 85007; 85025; 85610; 85730; 86850; 86900; 86901; 86920; 87040; 87070; 87081; 87086; 87181; 87205; 92950; 93005; 93306; 93970; 94002; 94003; 96361; 96365; 96367; 96375; 99291; 99292; J2370; J7030; J7620